=== PATIENT | male | born 1940 | race Caucasian/White ===

== ENCOUNTER 2017-01-15 13:01 | Outpatient (CLI) | payer MEDICARE, OTHER | END 2017-01-15 13:02 | disposition home or self-care (01) | DX: G47.33 Obstructive sleep apnea (adult) (pediatric) (principal) | CPT/HCPCS: 99203; G0463 ==

== ENCOUNTER 2017-02-01 21:07 | Outpatient (CLI) | payer MEDICARE, OTHER | END 2017-02-01 21:08 | disposition home or self-care (01) | DX: G47.33 Obstructive sleep apnea (adult) (pediatric) (principal); G47.61 Periodic limb movement disorder; Z68.41 Body mass index [BMI] 40.0-44.9, adult ==

== ENCOUNTER 2017-02-15 08:34 | Outpatient (CLI) | payer MEDICARE, OTHER | END 2017-02-15 08:35 | disposition home or self-care (01) | DX: G47.33 Obstructive sleep apnea (adult) (pediatric) (principal); G47.61 Periodic limb movement disorder | CPT/HCPCS: 99214; G0463 ==

== ENCOUNTER 2017-04-04 11:17 | Outpatient (CLI) | payer MEDICARE, OTHER | END 2017-04-04 11:18 | disposition home or self-care (01) | LOC: SC 11:17 | PROVIDERS: ATTEND Nurse Practitioner Family | DX: G47.33 Obstructive sleep apnea (adult) (pediatric) (principal) | CPT/HCPCS: 99214; G0463; 99212 ==

== ENCOUNTER 2017-06-18 15:05 | Outpatient (CLI) | payer MEDICARE, OTHER | END 2017-06-18 15:06 | disposition critical access hospital (66) | LOC: EMS 15:05 | PROVIDERS: ATTEND Surgery | DX: R07.9 Chest pain, unspecified (principal) | CPT/HCPCS: A0425; A0427 ==

== ENCOUNTER 2017-06-18 15:34 | Emergency (ER) | payer MEDICARE, OTHER ==
[2017-06-18] MEDS ORDERED: NITROGLYCERIN 2% PASTE TOP STA (16:01)
[2017-06-18 16:24] LABS: BASOPHILS # (AUTO) 0.1 10^3/uL (0.0-0.1); BASOPHILS % (AUTO) 0.8 %; EOSINOPHILS # (AUTO) 0.3 10^3/uL (0.0-0.7); EOSINOPHILS % (AUTO) 3.7 %; HCT - HEMATOCRIT 45.7 % (42.0-52.0); HGB - HEMOGLOBIN 15.7 g/dL (14.0-18.0); LYMPHOCYTES % (AUTO) 29.6 %; MEAN CORPUSCULAR HEMOGLOBIN 32.3 pg (27.0-31.0); MEAN CORPUSCULAR HGB CONC 34.2 g/dL (32.0-36.0); MEAN CORPUSCULAR VOLUME 94.3 fL (80.0-94.0); MEAN PLATELET VOLUME 8.9 fL (7.4-11.4); MONOCYTES # (AUTO) 0.5 10^3/uL (0.0-1.0); MONOCYTES % (AUTO) 7.5 %; NEUTROPHILS # (AUTO) 4.1 10^3/uL (1.5-6.6); NEUTROPHILS % (AUTO) 58.4 %; RED BLOOD COUNT 4.85 10^6/uL (4.70-6.10); RED CELL DISTRIBUTION WIDTH 14.7 % (12.0-15.0); UNCORRECTED WHITE BLOOD COUNT 6.9 x10^3/uL; WHITE BLOOD COUNT 6.9 x10^3/uL (4.8-10.8)
[2017-06-18] MEDS ORDERED: NITROGLYCERIN 2% PASTE TOP ONE (16:26)
[2017-06-18 16:32] LABS: INR 1.6 (0.8-1.2); PT - PROTHROMBIN TIME 18.4 secs (9.9-12.6)
[2017-06-18 16:36] LABS: ALBUMIN/GLOBULIN RATIO 1.4 (1.0-2.2); BILIRUBIN,TOTAL 1.5 mg/dL (0.2-1.0); CALCIUM 9.1 mg/dL (8.5-10.3); CREATININE 0.8 mg/dL (0.6-1.2); POTASSIUM 4.4 mmol/L (3.5-5.0)
--- NOTE | 2017-06-18 16:39 | XRAY Preliminary Report ---
Exam: XR Chest 1 View IMPRESSION: 1. There is cardiomegaly. 2. No acute intrathoracic plain film abnormality. [facility] SITE ID: [id number]
--- NOTE | 2017-06-18 16:42 | XRAY Report ---
EXAM: CHEST RADIOGRAPHY EXAM DATE: 06/18/2017 04:33 PM. CLINICAL HISTORY: CHEST PAIN. COMPARISON: None. TECHNIQUE: 1 view. FINDINGS: Lungs/Pleura: No focal opacities evident. No pleural effusion. No pneumothorax. Mediastinum: There is cardiomegaly. Sternotomy wires are in place. Other: None. IMPRESSION: 1. There is cardiomegaly. 2. No acute intrathoracic plain film abnormality. [facility] Referring Provider Line: [phone] SITE ID: [id number]
[2017-06-18] MEDS ORDERED: ENOXAPARIN 100 MG/ML SYRINGE SUBQ STA (16:48)
--- NOTE | 2017-06-18 16:59 | ED Physician Documentation ---
PD HPI CHEST PAIN - Stated complaint Stated Complaint: CP - Chief complaint Chief Complaint: Cardiac - History obtained from History obtained from: Patient, Family - Additional information Additional information: Patient is a 73-year-old man with history of hypertension, dyslipidemia and valvular heart disease status post 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 The patient presents with a complaint of chest pain that started at rest at 1:30. He describes a ache in the anterior precordium that was moderate to severe intensity that radiated into the right axilla. The pain duration was approximately 5 minutes. The pain went away and then came back again although was less severe. He had associated nausea but no dizziness or dyspnea. Currently the pain is nearly gone. He is never had chest pain like this before. He has not had any provocative stress testing for many many years he believes. Earlier today and over the last week he has been fine without any symptoms. Review of systems: For pertinent positive and negatives in the review of systems please see the history of present illness, otherwise all other systems have been reviewed and are negative. Dragon disclaimer: Parts of this medical record were created using voice recognition technology. Because of the inherent limitations of this system, occasional same sounding word substitutions do occur and persist despite proofreading. Please read the document for context. Review of Systems Ten Systems: 10 systems reviewed and negative Constitutional: denies: Fever, Myalgias Eyes: denies: Photophobia Ears: denies: Ear pain, Drainage/discharge Cardiac: reports: Chest pain / pressure. denies: Palpitations Respiratory: denies: Cough GI: denies: Abdominal Pain, Abdominal Swelling, Nausea, Vomiting : denies: Dysuria, Hesitancy, Unable to Void PD PAST MEDICAL HISTORY - Past Medical History Past Medical History: Yes Cardiovascular: Hypertension, High cholesterol, Atrial fibrillation, Valve disorder Respiratory: Sleep apnea, CPAP use Endocrine/Autoimmune: None GI: GERD : Frequency Psych: None Musculoskeletal: Osteoarthritis Derm: None - Past Surgical History Past Surgical History: Yes General: Colonoscopy Ortho: Other Cardiovascular: Valve replacement HEENT: Tonsil/Adenoidectomy Derm: Skin cancer surgery - Present Medications Home Medications: Ambulatory Orders Medication Instructions Recorded Confirmed Ascorbic Acid [Vitamin C] 1,000 mg PO 07/23/13 05/03/14 Celecoxib [CeleBREX] 200 mg PO DAILY 07/23/13 05/03/14 Cholecalciferol (Vitamin D3) 1,000 unit PO 07/23/13 05/03/14 [Vitamin D] Lisinopril [Zestril] 40 mg PO DAILY 07/23/13 06/18/17 Metoprolol Succinate 50 mg PO BID 07/23/13 06/18/17 Omeprazole [PriLOSEC] 20 mg PO DAILY 07/23/13 06/18/17 Tolterodine [Detrol LA] 4 mg PO DAILY 07/23/13 06/18/17 Warfarin [Coumadin] 5 mg PO DAILY 07/23/13 06/18/17 Mupirocin 1 applic TP BID #15 oint...g. 05/03/14 Sertraline [Zoloft] 06/18/17 - Allergies Allergies/Adverse Reactions: Allergies Allergy/AdvReac Type Severity Reaction Status Date / Time oxycodone [Oxycodone] Allergy Severe Itching Verified 07/23/13 10:22 famotidine [From Pepcid] AdvReac Intermediate unknown Verified 07/23/13 10:22 - Social History Does the pt smoke?: No Smoking Status: Never smoker Does the pt drink ETOH?: No Does the pt have substance abuse?: No - Immunizations Immunizations are current?: Yes - POLST Patient has POLST: No PD ED PE NORMAL - Vitals Vital signs reviewed: Yes - General General: Alert and oriented X 3, Other (Large habitus male no apparent distress) - HEENT HEENT: Atraumatic, PERRL, Pharynx benign, Dentition benign - Neck Neck: Supple, no meningeal sign, No JVD - Cardiac Cardiac: RRR, No murmur, No gallop, No rub - Respiratory Respiratory: No respiratory distress, Clear bilaterally - Abdomen Abdomen: Normal bowel sounds, Soft, Non tender, Non distended - Back Back: No CVA TTP - Derm Derm: Normal color, Warm and dry, No rash, Other - Extremities Extremities: No deformity, No tenderness to palpate - Neuro Neuro: Alert and oriented X 3, 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, No motor deficit, No sensory deficit Results - Vitals Vitals: Vital Signs - 24 hr 06/18/17 06/18/17 06/18/17 15:37 16:21 16:59 Temperature 36.4 C L Heart Rate 72 58 L 73 Respiratory 18 20 18 Rate Blood Pressure 169/70 H 133/69 H 140/68 H O2 Saturation 96 96 06/18/17 17:15 Temperature Heart Rate 59 L Respiratory 20 Rate Blood Pressure 144/74 H O2 Saturation 96 Oxygen O2 Source Room air - Labs Labs: Laboratory Tests 06/18/17 06/18/17 06/18/17 16:15 16:15 16:15 WBC 6.9 RBC 4.85 Hgb 15.7 Hct 45.7 MCV 94.3 H MCH 32.3 H MCHC 34.2 RDW 14.7 Plt Count 182 MPV 8.9 Neut # 4.1 Lymph # 2.0 [place] # 0.5 Eos # 0.3 Baso # 0.1 Absolute Nucleated RBC 0.00 Nucleated RBCs 0.0 PT 18.4 H INR 1.6 H Sodium 137 Potassium 4.4 Chloride 104 Carbon Dioxide 27 Anion Gap 6.0 BUN 22 H Creatinine 0.8 Estimated GFR (MDRD) 94 Glucose 81 Calcium 9.1 Total Bilirubin 1.5 H AST 38 ALT 30 Alkaline Phosphatase 59 Troponin I B-Natriuretic Peptide Total Protein 7.0 Albumin 4.1 Globulin 2.9 Albumin/Globulin Ratio 1.4 Lipase 18 L 06/18/17 06/18/17 16:15 16:15 WBC RBC Hgb Hct MCV MCH MCHC RDW Plt Count MPV Neut # Lymph # [place] # Eos # Baso # Absolute Nucleated RBC Nucleated RBCs PT INR Sodium Potassium Chloride Carbon Dioxide Anion Gap BUN Creatinine Estimated GFR (MDRD) Glucose Calcium Total Bilirubin AST ALT Alkaline Phosphatase Troponin I < 0.04 B-Natriuretic Peptide 130 H Total Protein Albumin Globulin Albumin/Globulin Ratio Lipase PD MEDICAL DECISION MAKING - ED course Complexity details: reviewed old records, reviewed results, re-evaluated patient , considered differential, d/w patient, d/w family, d/w sr risk management consultant ED course: Patient is a 73-year-old man with history of [facility]'s aortic valve repair in 2003, hypertension, and dyslipidemia who presents with severe chest pain at rest this afternoon. He had another brief paroxysms and then the pain is dissipated. At present his chest pain is nearly gone. He has a normal cardiac pulmonary exam on her in emergency department he has a normal cardiopulmonary examination. Chest x-ray shows no acute intrathoracic disease EKG shows normal sinus rhythm with a normal WI, QRS QT interval without ST segment elevation depression or T-wave inversion. Routine labs on this patient are unremarkable including troponin and BNP. Patient's chest x-ray shows cardiomegaly without any evidence of congestive heart failure or any other abnormality. The patient received 4 baby aspirins en route by EMS. Here in emergency department he was given 100 mg of Lovenox, nitroglycerin and nitroglycerin. Given this patient's past medical history and symptoms here today think he has moderate risk patient for ACS. His symptoms are quiescent at present. 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 I disposition transfer to [facility] Clinical impression: 1. Precordial pain-possible unstable angina 2. History of hypertension-stable 3. History of mechanical [facility] Sury[facility]'s aortic valve replacement 2003-stable 4. Slightly subtherapeutic INR at 1.6-patient given 100 mg of Lovenox Departure - Departure Disposition: 02 Transfer Acute Care Hosp
[2017-06-18] MEDS ORDERED: ENOXAPARIN 100 MG/ML SYRINGE SUBQ ONE (17:06)
[2017-06-18 18:25] VITALS: BP 144/62
== END 2017-06-18 19:14 | disposition short-term general hospital (02) ==
LOC: EDUNIT# → ED 15:34
DX: R07.2 Precordial pain (principal); I10 Essential (primary) hypertension; Z95.2 Presence of prosthetic heart valve; Z79.01 Long term (current) use of anticoagulants
CPT/HCPCS: 36415; 71010; 80053; 83690; 83880; 84484; 85025; 85610; 93005; 96372; 99284; 99285; A9270; J1650

== ENCOUNTER 2017-08-07 08:37 | Outpatient (CLI) | payer MEDICARE, OTHER | END 2017-08-07 08:38 | disposition home or self-care (01) | LOC: SC 08:37 | PROVIDERS: ATTEND Nurse Practitioner Family | DX: G47.33 Obstructive sleep apnea (adult) (pediatric) (principal) | CPT/HCPCS: 99214; G0463; 99212 ==

== ENCOUNTER 2017-09-11 13:02 | Outpatient (CLI) | payer MEDICARE, OTHER | END 2017-09-11 13:03 | disposition home or self-care (01) | LOC: SC 13:02 | PROVIDERS: ATTEND Nurse Practitioner Family | DX: G47.33 Obstructive sleep apnea (adult) (pediatric) (principal) | CPT/HCPCS: 99214; G0463; 99212 ==

== ENCOUNTER 2017-10-18 11:07 | Outpatient (CLI) | payer MEDICARE, OTHER | END 2017-10-18 11:08 | disposition home or self-care (01) | LOC: SC 11:07 | PROVIDERS: ATTEND Nurse Practitioner Family | DX: G47.33 Obstructive sleep apnea (adult) (pediatric) (principal) | CPT/HCPCS: 99214; G0463; 99212 ==

== ENCOUNTER 2017-11-13 08:00 | Outpatient (CLI) | payer MEDICARE, OTHER ==
[2017-11-13 13:39] LABS: ALBUMIN/GLOBULIN RATIO 1.6 (1.0-2.2); ALKALINE PHOSPHATASE 49 IU/L (42-121); ALT ALANINE AMINOTRANSFERASE 24 IU/L (10-60); AST ASPARTATE AMINOTRANSFERASE 33 IU/L (10-42); BILIRUBIN,TOTAL 1.4 mg/dL (0.2-1.0); BUN - BLOOD UREA NITROGEN 21 mg/dL (6-20); CALCIUM 8.8 mg/dL (8.5-10.3); CARBON DIOXIDE - CO2 26 mmol/L (21-32); CHLORIDE 108 mmol/L (101-111); CHOL/HDL RATIO 3.6 (<5.0); CHOLESTEROL 136 mg/dL; CREATININE 0.9 mg/dL (0.6-1.2); GFR - MDRD 82 (>89); GLUCOSE 95 mg/dL (70-100); HDL CHOLESTEROL 38 mg/dL; LDL CHOLESTEROL,CALCULATED 73 mg/dL; LDL/HDL RATIO 1.9 (<3.6); SODIUM 137 mmol/L (135-145); TOTAL PROTEIN 6.5 g/dL (6.7-8.2); VLDL CHOLESTEROL 25 mg/dL
[2017-11-13 13:49] LABS: HB2 TOTAL 16.9 g/dL; HEMOGLOBIN A1C 0.51 g/dL; HEMOGLOBIN A1C % 4.9 % (4.6-6.2)
== END 2017-11-13 08:01 | disposition home or self-care (01) ==
LOC: LAB.WCP 08:00
PROVIDERS: ATTEND Family Medicine
DX: R73.9 Hyperglycemia, unspecified (principal); E78.5 Hyperlipidemia, unspecified; I10 Essential (primary) hypertension
CPT/HCPCS: 36415; 80053; 80061; 83036; 83721

== ENCOUNTER 2017-12-26 10:57 | Outpatient (CLI) | payer MEDICARE, OTHER | END 2017-12-26 10:58 | disposition home or self-care (01) | LOC: SC 10:57 | PROVIDERS: ATTEND Nurse Practitioner Family | DX: G47.33 Obstructive sleep apnea (adult) (pediatric) (principal) | CPT/HCPCS: 99214; G0463; 99212 ==

== ENCOUNTER 2018-02-12 13:15 | Outpatient (CLI) | payer MEDICARE, OTHER ==
[2018-02-12 19:19] LABS: BASOPHILS # (AUTO) 0.1 10^3/uL (0.0-0.1); BASOPHILS % (AUTO) 1.2 %; EOSINOPHILS # (AUTO) 0.3 10^3/uL (0.0-0.7); HGB - HEMOGLOBIN 14.9 g/dL (14.0-18.0); LYMPHOCYTES # (AUTO) 2.2 10^3/uL (1.5-3.5); LYMPHOCYTES % (AUTO) 26.5 %; MEAN CORPUSCULAR HEMOGLOBIN 31.4 pg (27.0-31.0); MEAN CORPUSCULAR HGB CONC 33.5 g/dL (32.0-36.0); MEAN CORPUSCULAR VOLUME 93.6 fL (80.0-94.0); MEAN PLATELET VOLUME 9.3 fL (7.4-11.4); MONOCYTES # (AUTO) 0.5 10^3/uL (0.0-1.0); NEUTROPHILS # (AUTO) 5.3 10^3/uL (1.5-6.6); NEUTROPHILS % (AUTO) 63.3 %; PLT - PLATELET COUNT 213 10^3/uL (130-450); RED BLOOD COUNT 4.76 10^6/uL (4.70-6.10); RED CELL DISTRIBUTION WIDTH 14.5 % (12.0-15.0); WHITE BLOOD COUNT 8.3 x10^3/uL (4.8-10.8)
[2018-02-12 19:29] LABS: CALCIUM 9.4 mg/dL (8.5-10.3); CREATININE 0.8 mg/dL (0.6-1.2)
[2018-02-12 19:33] LABS: HB2 TOTAL 16.7 g/dL; HEMOGLOBIN A1C 0.54 g/dL; HEMOGLOBIN A1C % 5.1 % (4.6-6.2)
== END 2018-02-12 13:16 | disposition home or self-care (01) ==
LOC: LAB.WCP 13:15
PROVIDERS: ATTEND Family Medicine
DX: R73.9 Hyperglycemia, unspecified (principal); I10 Essential (primary) hypertension; Z79.899 Other long term (current) drug therapy
CPT/HCPCS: 36415; 80048; 83036; 85025

== ENCOUNTER 2018-02-25 09:59 | Outpatient (CLI) | payer MEDICARE, OTHER | END 2018-02-25 10:00 | disposition home or self-care (01) | LOC: SC 09:59 | PROVIDERS: ATTEND Nurse Practitioner Family | DX: G47.33 Obstructive sleep apnea (adult) (pediatric) (principal); I10 Essential (primary) hypertension | CPT/HCPCS: 99214 ==

== ENCOUNTER 2018-04-01 13:30 | Outpatient (CLI) | payer MEDICARE, OTHER | END 2018-04-01 13:31 | disposition home or self-care (01) | LOC: SC 13:30 | PROVIDERS: ATTEND Nurse Practitioner Family | DX: G47.33 Obstructive sleep apnea (adult) (pediatric) (principal) | CPT/HCPCS: 99214; G0463; 99212 ==

== ENCOUNTER 2018-06-13 10:03 | Outpatient (CLI) | payer MEDICARE, OTHER | END 2018-06-13 10:04 | disposition home or self-care (01) | LOC: SC 10:03 | PROVIDERS: ATTEND Nurse Practitioner Family | DX: G47.33 Obstructive sleep apnea (adult) (pediatric) (principal) | CPT/HCPCS: 99214; G0463; 99212 ==

== ENCOUNTER 2018-07-18 13:02 | Outpatient (CLI) | payer MEDICARE, OTHER | END 2018-07-18 13:03 | disposition home or self-care (01) | LOC: SC 13:02 | PROVIDERS: ATTEND Nurse Practitioner Family | DX: G47.33 Obstructive sleep apnea (adult) (pediatric) (principal) | CPT/HCPCS: 99214; G0463; 99212 ==

== ENCOUNTER 2018-08-22 10:07 | Outpatient (CLI) | payer MEDICARE, OTHER | END 2018-08-22 10:08 | disposition home or self-care (01) | LOC: SC 10:07 | PROVIDERS: ATTEND Nurse Practitioner Family | DX: G47.33 Obstructive sleep apnea (adult) (pediatric) (principal) | CPT/HCPCS: 99214; G0463; 99212 ==

== ENCOUNTER → 2018-09-04 | Outpatient (CLI) | payer MEDICARE, OTHER ==
[2018-09-04 13:47] LABS: ALBUMIN 4.2 g/dL (3.2-5.5); ALBUMIN/GLOBULIN RATIO 1.6 (1.0-2.2); ALKALINE PHOSPHATASE 62 IU/L (42-121); ALT ALANINE AMINOTRANSFERASE 26 IU/L (10-60); AST ASPARTATE AMINOTRANSFERASE 39 IU/L (10-42); BILIRUBIN,TOTAL 1.5 mg/dL (0.2-1.0); BUN - BLOOD UREA NITROGEN 24 mg/dL (6-20); CARBON DIOXIDE - CO2 28 mmol/L (21-32); CHLORIDE 102 mmol/L (101-111); CHOL/HDL RATIO 3.4 (<5.0); CHOLESTEROL 144 mg/dL; CREATININE 0.8 mg/dL (0.6-1.2); GFR - MDRD 94 (>89); GLUCOSE 97 mg/dL (70-100); HDL CHOLESTEROL 42 mg/dL; LDL CHOLESTEROL,CALCULATED 78 mg/dL; LDL/HDL RATIO 1.9 (<3.6); SODIUM 138 mmol/L (135-145); TOTAL PROTEIN 6.8 g/dL (6.7-8.2); VLDL CHOLESTEROL 24 mg/dL
[2018-09-04 14:21] LABS: HB2 TOTAL 16.6 g/dL; HEMOGLOBIN A1C 0.5 g/dL; HEMOGLOBIN A1C % 4.9 % (4.6-6.2)
== END ==
LOC: LAB.WCP 08:38
PROVIDERS: ATTEND Family Medicine
DX: R73.9 Hyperglycemia, unspecified (principal); I10 Essential (primary) hypertension; E78.5 Hyperlipidemia, unspecified; R07.9 Chest pain, unspecified
CPT/HCPCS: 36415; 80053; 80061; 83036; 83721

== ENCOUNTER 2018-09-26 08:36 | Outpatient (CLI) | payer MEDICARE, OTHER | END 2018-09-26 08:37 | disposition home or self-care (01) | LOC: SC 08:36 | PROVIDERS: ATTEND Nurse Practitioner Family | DX: G47.33 Obstructive sleep apnea (adult) (pediatric) (principal) | CPT/HCPCS: 99214; G0463; 99212 ==

== ENCOUNTER 2018-10-01 06:12 | Outpatient (CLI) | payer MEDICARE, OTHER ==
--- NOTE | 2018-10-01 16:04 | Ultrasound Report ---
Reason: NICOTINE ADDICTION IN REMISSION Procedure Date: 10/01/2018 Accession Number: [id number] / [id number] Procedure: US - Aorta Screening CPT Code: FULL RESULT: EXAM: AORTIC DOPPLER ULTRASOUND. EXAM DATE: 10/01/2018 09:27 AM. CLINICAL HISTORY: Nicotine addiction in remission. COMPARISON: None. TECHNIQUE: Real-time sonographic imaging of retroperitoneal vascular structures, including color-flow, Doppler flow and spectral analysis was performed by the employee benefits specialist. Multiple utility sales representative static images were saved for review. FINDINGS: Aorta: The abdominal aorta was adequately visualized. No evidence for abdominal aortic aneurysm. Technically limited study due to patient body habitus. Aorta: Proximal: Sagittal AP: 2.4 cm. Mid: Transverse: 1.7 x 1.6 cm. Distal: Transverse: 1.7 x 1.4 cm. Plaque visualized: Yes. Caliber WNL: Yes. Plaque Visualized? Yes. Iliacs: Right Iliac: AP Dimension: 0.97 x 1.1 cm. Left Iliac: AP Dimension: 1.1 x 0.97 cm. Iliac Vessels: The visualized proximal common iliac arteries are normal in caliber. Other: None. IMPRESSION: No abdominal aortic aneurysm. [facility]
== END 2018-10-01 06:13 | disposition home or self-care (01) ==
LOC: DI 06:12
PROVIDERS: ATTEND Family Medicine
DX: F17.201 Nicotine dependence, unspecified, in remission (principal)
CPT/HCPCS: 76706

== ENCOUNTER 2018-12-25 08:00 | Outpatient (CLI) | payer MEDICARE, OTHER | END 2018-12-25 23:59 | disposition home or self-care (01) | LOC: LAB.WCP 08:00 | PROVIDERS: ATTEND Family Medicine | DX: Z79.01 Long term (current) use of anticoagulants (principal); I08.0 Rheumatic disorders of both mitral and aortic valves ==

== ENCOUNTER 2019-01-08 08:00 | Outpatient (CLI) | payer MEDICARE, OTHER | END 2019-01-08 23:59 | disposition home or self-care (01) | LOC: LAB.WCP 08:00 | PROVIDERS: ATTEND Family Medicine | DX: I08.0 Rheumatic disorders of both mitral and aortic valves (principal); Z79.01 Long term (current) use of anticoagulants ==

== ENCOUNTER 2019-01-08 08:00 | Outpatient (CLI) | payer MEDICARE, OTHER ==
[2019-01-08 19:54] LABS: BASOPHILS # (AUTO) 0.1 10^3/uL (0.0-0.1); BASOPHILS % (AUTO) 0.9 %; EOSINOPHILS # (AUTO) 0.2 10^3/uL (0.0-0.7); EOSINOPHILS % (AUTO) 2.8 %; HGB - HEMOGLOBIN 14.7 g/dL (14.0-18.0); LYMPHOCYTES # (AUTO) 1.6 10^3/uL (1.5-3.5); LYMPHOCYTES % (AUTO) 25.5 %; MEAN CORPUSCULAR HEMOGLOBIN 31.4 pg (27.0-31.0); MEAN CORPUSCULAR VOLUME 95.1 fL (80.0-94.0); MEAN PLATELET VOLUME 9.4 fL (7.4-11.4); MONOCYTES # (AUTO) 0.5 10^3/uL (0.0-1.0); MONOCYTES % (AUTO) 8.7 %; NEUTROPHILS # (AUTO) 3.8 10^3/uL (1.5-6.6); NEUTROPHILS % (AUTO) 62.1 %; PLT - PLATELET COUNT 185 10^3/uL (130-450); RED BLOOD COUNT 4.69 10^6/uL (4.70-6.10); RED CELL DISTRIBUTION WIDTH 15.5 % (12.0-15.0); WHITE BLOOD COUNT 6.2 x10^3/uL (4.8-10.8)
[2019-01-08 20:12] LABS: ALBUMIN 3.8 g/dL (3.2-5.5); ALBUMIN/GLOBULIN RATIO 1.4 (1.0-2.2); BILIRUBIN,TOTAL 1.3 mg/dL (0.2-1.0); CREATININE 0.8 mg/dL (0.6-1.2); TOTAL PROTEIN 6.5 g/dL (6.7-8.2)
== END 2019-01-08 23:59 | disposition home or self-care (01) ==
LOC: LAB.WCP 08:00
PROVIDERS: ATTEND Family Medicine
DX: E80.6 Other disorders of bilirubin metabolism (principal); I10 Essential (primary) hypertension; I08.0 Rheumatic disorders of both mitral and aortic valves; Z79.01 Long term (current) use of anticoagulants
CPT/HCPCS: 36415; 80053; 85025

== ENCOUNTER 2019-01-22 08:00 | Outpatient (CLI) | payer MEDICARE, OTHER | END 2019-01-22 23:59 | disposition home or self-care (01) | LOC: LAB.WCP 08:00 | PROVIDERS: ATTEND Family Medicine | DX: I08.0 Rheumatic disorders of both mitral and aortic valves (principal); Z79.01 Long term (current) use of anticoagulants ==

== ENCOUNTER 2019-03-03 19:22 | Outpatient (CLI) | payer MEDICARE, OTHER | END 2019-03-03 19:23 | disposition home or self-care (01) | LOC: SC 19:22 | PROVIDERS: ATTEND Internal Medicine Pulmonary Disease | DX: G47.33 Obstructive sleep apnea (adult) (pediatric) (principal); G47.61 Periodic limb movement disorder | CPT/HCPCS: 95811 ==

== ENCOUNTER 2019-03-20 08:00 | Outpatient (CLI) | payer MEDICARE, OTHER ==
[2019-03-20 18:46] LABS: BASOPHILS # (AUTO) 0.1 10^3/uL (0.0-0.1); BASOPHILS % (AUTO) 0.9 %; EOSINOPHILS # (AUTO) 0.2 10^3/uL (0.0-0.7); EOSINOPHILS % (AUTO) 2.8 %; HGB - HEMOGLOBIN 15.4 g/dL (14.0-18.0); LYMPHOCYTES # (AUTO) 2.1 10^3/uL (1.5-3.5); MEAN CORPUSCULAR HEMOGLOBIN 31.7 pg (27.0-31.0); MEAN CORPUSCULAR VOLUME 93.2 fL (80.0-94.0); MEAN PLATELET VOLUME 9.1 fL (7.4-11.4); MONOCYTES # (AUTO) 0.6 10^3/uL (0.0-1.0); MONOCYTES % (AUTO) 8.8 %; NEUTROPHILS % (AUTO) 57.5 %; PLT - PLATELET COUNT 220 10^3/uL (130-450); RED BLOOD COUNT 4.85 10^6/uL (4.70-6.10); RED CELL DISTRIBUTION WIDTH 14.5 % (12.0-15.0)
[2019-03-20 18:48] LABS: ALBUMIN 4.1 g/dL (3.2-5.5); ALBUMIN/GLOBULIN RATIO 1.3 (1.0-2.2); BILIRUBIN,TOTAL 1.4 mg/dL (0.2-1.0); CALCIUM 9.4 mg/dL (8.5-10.3); CREATININE 0.7 mg/dL (0.6-1.2); TOTAL PROTEIN 7.2 g/dL (6.7-8.2)
[2019-03-20 19:01] LABS: THYROID STIMULATING HORMONE 1.39 uIU/mL (0.34-5.60)
[2019-03-20 19:18] LABS: HB2 TOTAL 16.6 g/dL; HEMOGLOBIN A1C 0.62 g/dL; HEMOGLOBIN A1C % 5.6 % (4.6-6.2)
== END 2019-03-20 23:59 | disposition home or self-care (01) ==
LOC: LAB.WCP 08:00
PROVIDERS: ATTEND Family Medicine
DX: I10 Essential (primary) hypertension (principal); Z79.899 Other long term (current) drug therapy; R27.9 Unspecified lack of coordination; K21.9 Gastro-esophageal reflux disease without esophagitis; M17.9 Osteoarthritis of knee, unspecified
CPT/HCPCS: 36415; 80053; 82306; 82607; 82746; 83036; 84443; 85025

== ENCOUNTER 2019-04-30 09:14 | Outpatient (CLI) | payer MEDICARE, OTHER | END 2019-04-30 09:15 | disposition home or self-care (01) | LOC: SC 09:14 | PROVIDERS: ATTEND Nurse Practitioner Family | DX: G47.33 Obstructive sleep apnea (adult) (pediatric) (principal); G47.61 Periodic limb movement disorder | CPT/HCPCS: 99215; G0463; 99212 ==

== ENCOUNTER 2019-05-24 11:13 | Outpatient (CLI) | payer MEDICARE, OTHER | END 2019-05-24 11:14 | disposition critical access hospital (66) | LOC: EMS 11:13 | PROVIDERS: ATTEND Surgery | DX: S06.9X1A Unspecified intracranial injury with loss of consciousness of 30 minutes or less, initial encounter (principal); S01.01XA Laceration without foreign body of scalp, initial encounter; W18.09XA Striking against other object with subsequent fall, initial encounter; Y92.008 Other place in unspecified non-institutional (private) residence as the place of occurrence of the external cause; Z79.01 Long term (current) use of anticoagulants | CPT/HCPCS: A0425; A0427 ==

== ENCOUNTER 2019-05-24 11:42 | Emergency (ER) | payer MEDICARE, OTHER ==
[2019-05-24 11:58] LABS: BASOPHILS # (AUTO) 0.1 10^3/uL (0.0-0.1); BASOPHILS % (AUTO) 0.9 %; EOSINOPHILS # (AUTO) 0.3 10^3/uL (0.0-0.7); EOSINOPHILS % (AUTO) 4.2 %; HGB - HEMOGLOBIN 14.6 g/dL (14.0-18.0); LYMPHOCYTES # (AUTO) 1.6 10^3/uL (1.5-3.5); LYMPHOCYTES % (AUTO) 25.7 %; MEAN CORPUSCULAR HEMOGLOBIN 31.7 pg (27.0-31.0); MEAN CORPUSCULAR HGB CONC 33.7 g/dL (32.0-36.0); MEAN CORPUSCULAR VOLUME 94.1 fL (80.0-94.0); MEAN PLATELET VOLUME 10.8 fL (7.4-11.4); MONOCYTES # (AUTO) 0.6 10^3/uL (0.0-1.0); MONOCYTES % (AUTO) 8.6 %; NEUTROPHILS # (AUTO) 3.8 10^3/uL (1.5-6.6); NEUTROPHILS % (AUTO) 59.7 %; PLT - PLATELET COUNT 189 10^3/uL (130-450); RED CELL DISTRIBUTION WIDTH 14.5 % (12.0-15.0); WHITE BLOOD COUNT 6.4 x10^3/uL (4.8-10.8)
--- NOTE | 2019-05-24 11:59 | ED Physician Documentation ---
PD HPI HEAD INJURY - Stated complaint Stated Complaint: HEAD INJURY/ +LOC - Chief complaint Chief Complaint: Neuro - History obtained from History obtained from: Patient, EMS - History of Present Illness Mechanism of head injury: Fell Where head injury occurred: Home Timing - onset: Today Location of injury: Back Quality of pain: Pain Associated symptoms: LOC, AMS, Amnesia Symptoms improve with: Rest Symptoms worsen with: Palpation Contributing factors: Anticoagulated (on coumadin) Similar symptoms before: Has not had sx before Recently seen: Not recently seen - Additional information Additional information: 78-year-old male on Coumadin was walking out to his shop today when he struck his head on the garage door and fell backwards. He injured the back of his head he did have some loss of consciousness at the scene. He does not recall the injury. He is on Coumadin. Review of Systems Constitutional: denies: Fever Eyes: denies: Decreased vision Ears: denies: Ear pain Nose: denies: Rhinorrhea / runny nose, Congestion Throat: denies: Sore throat Cardiac: denies: Chest pain / pressure, Palpitations Respiratory: denies: Dyspnea, Cough GI: denies: Abdominal Pain, Nausea, Vomiting : denies: Dysuria, Frequency Skin: denies: Rash Musculoskeletal: denies: Neck pain Neurologic: reports: Confused, Headache, Head injury, LOC. denies: Generalized weakness, Focal weakness, Numbness, Difficulty speaking PD PAST MEDICAL HISTORY - Past Medical History Cardiovascular: Hypertension, High cholesterol, Atrial fibrillation, Valve disorder Respiratory: Sleep apnea, CPAP use Endocrine/Autoimmune: None GI: GERD : Frequency Psych: None Musculoskeletal: Osteoarthritis Derm: None - Past Surgical History Past Surgical History: Yes General: Colonoscopy Ortho: Other Cardiovascular: Valve replacement HEENT: Tonsil/Adenoidectomy Derm: Skin cancer surgery - Present Medications Home Medications: Ambulatory Orders Medication Instructions Recorded Confirmed Ascorbic Acid [Vitamin C] 1,000 mg PO 07/23/13 05/03/14 Celecoxib [CeleBREX] 200 mg PO DAILY 07/23/13 05/03/14 Cholecalciferol (Vitamin D3) 1,000 unit PO 07/23/13 05/03/14 [Vitamin D] Lisinopril [Zestril] 40 mg PO DAILY 07/23/13 06/18/17 Omeprazole [PriLOSEC] 20 mg PO DAILY 07/23/13 06/18/17 Tolterodine [Detrol LA] 4 mg PO DAILY 07/23/13 06/18/17 Warfarin [Coumadin] 5 mg PO DAILY 07/23/13 06/18/17 Sertraline [Zoloft] 06/18/17 Atorvastatin [Lipitor] 20 05/24/19 Cetirizine [ZyrTEC] 10 mg PO ONCE 05/24/19 05/24/19 Metoprolol Succinate [Toprol Xl] 25 mg PO ONCE 05/24/19 05/24/19 - Allergies Allergies/Adverse Reactions: Allergies Allergy/AdvReac Type Severity Reaction Status Date / Time oxycodone [Oxycodone] Allergy Severe Itching Verified 07/23/13 10:22 famotidine [From Pepcid] AdvReac Intermediate unknown Verified 07/23/13 10:22 - Social History Does the pt smoke?: No Smoking Status: Never smoker Does the pt drink ETOH?: No Does the pt have substance abuse?: No - Immunizations Immunizations are current?: Yes - POLST Patient has POLST: No PD ED PE NORMAL - Vitals Vital signs reviewed: Yes (hypertensive ) - General General: No acute distress, Well developed/nourished - HEENT HEENT: PERRL, EOMI - Neck Neck: Supple, no meningeal sign, No bony TTP - Cardiac Cardiac: RRR, No murmur - Respiratory Respiratory: No respiratory distress, Clear bilaterally - Abdomen Abdomen: Normal bowel sounds, Soft, Non tender, Non distended, No organomegaly - Back Back: No CVA TTP, No spinal TTP - Derm Derm: Normal color, Warm and dry, No rash - Extremities Extremities: No deformity, No edema - Neuro 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, No motor deficit, No sensory deficit, Normal speech Eye Opening: Spontaneous Motor: Obeys Commands Verbal: Confused GCS Score: 14 - Psych Psych: Normal mood, Normal affect Results - Vitals Vitals: Vital Signs - 24 hr 05/24/19 05/24/19 05/24/19 11:45 12:34 14:17 Temperature 36 C L Heart Rate 64 66 63 Respiratory 18 20 13 Rate Blood Pressure 169/85 H 163/79 H 141/71 H O2 Saturation 100 99 98 05/24/19 15:19 Temperature Heart Rate 63 Respiratory 20 Rate Blood Pressure 130/78 O2 Saturation 96 Oxygen O2 Source Room air - Labs Labs: Laboratory Tests 05/24/19 05/24/19 05/24/19 11:49 11:49 11:49 WBC 6.4 RBC 4.60 L Hgb 14.6 Hct 43.3 MCV 94.1 H MCH 31.7 H MCHC 33.7 RDW 14.5 Plt Count 189 MPV 10.8 Neut # (Auto) 3.8 Lymph # (Auto) 1.6 [place] # (Auto) 0.6 Eos # (Auto) 0.3 Baso # (Auto) 0.1 Absolute Nucleated RBC 0.00 Nucleated RBC % 0.0 PT 32.9 H INR 3.0 H Sodium 142 Potassium 4.3 Chloride 105 Carbon Dioxide 26 Anion Gap 11.0 BUN 17 Creatinine 0.7 Estimated GFR (MDRD) 109 Glucose 95 Calcium 9.2 Total Bilirubin 1.2 H AST 29 ALT 23 Alkaline Phosphatase 65 Total Protein 6.5 L Albumin 3.7 Globulin 2.8 Albumin/Globulin Ratio 1.3 Lipase 24 Urine Color Urine Clarity Urine pH Ur Specific [place] Urine Protein Urine Glucose (UA) Urine Ketones Urine Occult Blood Urine Nitrite Urine Bilirubin Urine Urobilinogen Ur Leukocyte Esterase Ur Microscopic Review Urine Culture Comments 05/24/19 12:45 WBC RBC Hgb Hct MCV MCH MCHC RDW Plt Count MPV Neut # (Auto) Lymph # (Auto) [place] # (Auto) Eos # (Auto) Baso # (Auto) Absolute Nucleated RBC Nucleated RBC % PT INR Sodium Potassium Chloride Carbon Dioxide Anion Gap BUN Creatinine Estimated GFR (MDRD) Glucose Calcium Total Bilirubin AST ALT Alkaline Phosphatase Total Protein Albumin Globulin Albumin/Globulin Ratio Lipase Urine Color YELLOW Urine Clarity CLEAR Urine pH 7.0 Ur Specific [place] <=1.005 Urine Protein NEGATIVE Urine Glucose (UA) NEGATIVE Urine Ketones NEGATIVE Urine Occult Blood NEGATIVE Urine Nitrite NEGATIVE Urine Bilirubin NEGATIVE Urine Urobilinogen 0.2 (NORMAL) Ur Leukocyte Esterase NEGATIVE Ur Microscopic Review NOT INDICATED Urine Culture Comments NOT INDICATED - Rads (name of study) cervical spine ct Radiology: Prelim report reviewed (Impression 1. Multi-level osteoarthritis changes present, worse at C5/C6. No acute fracture noted. Possible esophageal diverticulum noted posterior to the trachea in the midesophagus.), EMP read indepedently, See rad report head CT Radiology: Prelim report reviewed (Impression: Mild senescent changes without CT evidence of acute intracranial disease.), EMP read indepedently, See rad report ribs w/PA chest Radiology: Prelim report reviewed (Impression: 1. No acute displaced fracture identified. 2 Stable mild cardia megaly. 3 Mild diffuse interstitial prominence appears similar to prior exam. This may be due to interstitial edema or chronic lung changes), EMP read indepedently, See rad report wrist Radiology: Prelim report reviewed (Impression: 1. No fracture or other acute osseous abnormality of the wrist.2 Bones are diffusely demineralized. Severe degenerative joint changes at the first metacarpal joint. 2 The trapezium is not visualized and may be surgically absent. 3 There is mild narrowing of the radiocarpal joint space.), EMP read indepedently, See rad report PD MEDICAL DECISION MAKING - ED course Complexity details: reviewed results, re-evaluated patient, considered differential, d/w patient, d/w family ED course: 78 y/o Male with a closed head injury on Coumadin has no evidence of hemorrhage on CT scan. He does have repetitive amnesia And this begins to clear over a period of several hours. He has chest wall contusion without fracture and wrist sprain. Departure - Departure Disposition: 01 Home, Self Care Clinical Impression: Concussion with brief LOC Chest wall contusion Qualifiers: Encounter type: initial encounter Laterality: right Qualified Code(s): S20.211A - Contusion of right front wall of thorax, initial encounter Condition: Stable Instructions: ED Contusion Vs Minor Fx Rib, ED Concussion W Sleep Monitor, ED Sprain Wrist Follow-Up: Otoniel Duarte DO [Primary Care Provider] -
[2019-05-24 12:09] LABS: PT - PROTHROMBIN TIME 32.9 secs (9.9-12.6)
[2019-05-24 12:11] LABS: ALBUMIN 3.7 g/dL (3.2-5.5); ALBUMIN/GLOBULIN RATIO 1.3 (1.0-2.2); BILIRUBIN,TOTAL 1.2 mg/dL (0.2-1.0); CALCIUM 9.2 mg/dL (8.5-10.3); CREATININE 0.7 mg/dL (0.6-1.2); TOTAL PROTEIN 6.5 g/dL (6.7-8.2)
[2019-05-24 13:00] LABS: BILIRUBIN,URINE NEGATIVE (NEGATIVE); CLARITY,URINE CLEAR (CLEAR); GLUCOSE, URINE (UA) NEGATIVE (NEGATIVE); KETONES,URINE (UA) NEGATIVE (NEGATIVE); LEUKOCYTE ESTERASE, URINE NEGATIVE (NEGATIVE); NITRITE,URINE NEGATIVE (NEGATIVE); OCCULT BLOOD,URINE NEGATIVE (NEGATIVE); PROTEIN,URINE NEGATIVE (NEGATIVE); UROBILINOGEN,URINE 0.2 (NORMAL) E.U./dL (NORMAL)
--- NOTE | 2019-05-24 13:09 | CT Report ---
Reason: head injury anti-coagulant Procedure Date: 05/24/2019 Accession Number: [id number] / [id number] Procedure: CT - HEAD WO CPT Code: FULL RESULT: EXAM: CT HEAD EXAM DATE: 05/24/2019 12:30 PM. CLINICAL HISTORY: Headache status post fall with confusion. COMPARISON: None. TECHNIQUE: Multiaxial CT images were obtained from the foramen magnum to the vertex. Reformats: Sagittal and coronal. IV contrast: None. In accordance with CT protocol optimization, one or more of the following dose reduction techniques were utilized for this exam: automated exposure control, adjustment of mA and/or KV based on patient size, or use of iterative reconstructive technique. FINDINGS: Parenchyma: No intraparenchymal hemorrhage. No evidence of mass, midline shift, or CT findings of infarction. Sifuentes-white differentiation is distinct. Mild periventricular hypoattenuation seen. Extraaxial Spaces: Mild atrophy present. No subdural or epidural collections identified. Ventricles: Normal in size and position. Sinuses and Orbits: Imaged paranasal sinuses, orbits, and mastoids show no significant abnormality. Bones: No evidence of fracture or calvarial defect. Other: None. IMPRESSION: Mild senescent changes without CT evidence of acute intracranial disease. [facility]
--- NOTE | 2019-05-24 13:15 | CT Report ---
Reason: head injury confusion Procedure Date: 05/24/2019 Accession Number: [id number] / [id number] Procedure: CT - CERVICAL SPINE WO CPT Code: FULL RESULT: EXAM: CT CERVICAL SPINE WITHOUT CONTRAST DATE: 05/24/2019 12:30 PM. HISTORY: Neck pain post fall with head injury. Confusion/altered mental status. COMPARISONS: None. TECHNIQUE: Thin-section axial images were acquired of the cervical spine without contrast. Post-processing: Coronal and sagittal reformats. Other: None. In accordance with CT protocol optimization, one or more of the following dose reduction techniques were utilized for this exam: automated exposure control, adjustment of mA and/or KV based on patient size, or use of iterative reconstructive technique. FINDINGS: Alignment: No scoliosis or spondylolisthesis. Bones: No fracture or bone lesion. Interspace Levels/Facets: Moderate multilevel osteoarthritic changes present, worse at C5/C6, with prominent neural foraminal narrowing. Musculature: Normal. No fatty atrophy. Other: There is possible esophageal diverticulum noted posterior to the trachea best noted on image 103 of series 3. The lung apices are clear. IMPRESSION: 1. Moderate multilevel osteoarthritic changes present, worst at C5/C6. No acute fracture noted. 2. Possible esophageal diverticulum noted posterior to the trachea in the mid esophagus. [facility]
[2019-05-24] MEDS ORDERED: ACETAMINOPHEN 500 MG TABLET PO STA (13:59)
--- NOTE | 2019-05-24 14:15 | XRAY Report ---
Reason: fall right chest contusion Procedure Date: 05/24/2019 Accession Number: [id number] / [id number] Procedure: XR - Ribs w/PA Chest RT CPT Code: FULL RESULT: EXAM: RIGHT RIB RADIOGRAPHY EXAM DATE: 05/24/2019 01:56 PM. CLINICAL HISTORY: Fall. Right chest contusion. COMPARISON: CHEST 1 VIEW 06/18/2017 3:53 PM. TECHNIQUE: 1 view of the chest and 2 views of the ribs. FINDINGS: Bones: No displaced fracture or bone lesion. The patient is post median sternotomy. 2 of the sternal cerclage wires are fractured, which was present on the prior exam. Lungs: No focal consolidation. Mild diffuse interstitial prominence similar to the prior exam. No pneumothorax. No pleural effusions. Mediastinum: There is stable mild enlargement of the cardiac silhouette. There is mild atherosclerotic ossification of the aortic arch. Other: None. IMPRESSION: 1. No acute displaced fracture identified. 2. Stable mild cardiomegaly. 3. Mild diffuse interstitial prominence appears similar to the prior exam. This may be due to mild interstitial edema or chronic lung changes. [facility]
--- NOTE | 2019-05-24 14:18 | XRAY Report ---
Reason: fall pain in wrist Procedure Date: 05/24/2019 Accession Number: [id number] / [id number] Procedure: XR - Wrist 4 View RT CPT Code: FULL RESULT: EXAM: RIGHT WRIST RADIOGRAPHY EXAM DATE: 05/24/2019 01:55 PM. CLINICAL HISTORY: Ground-level fall landing on right side, injuring right wrist. Pain in wrist. COMPARISON: None. TECHNIQUE: 4 views. FINDINGS: Bones: Diffusely demineralized. No fractures or bone lesions. The trapezium is not visualized and may be surgically absent. Joints: No subluxation or dislocation. There is severe degenerative osteoarthritis at the first carpometacarpal joint. There are subchondral cystic changes in the distal pole of the scaphoid. There is mild joint space narrowing of the radiocarpal joint space. Soft Tissues: No focal soft-tissue swelling appreciated. IMPRESSION: 1. No fracture or other acute osseous abnormality of the wrist. Bones are diffusely demineralized. 2. Severe degenerative joint changes at the first carpometacarpal joint. The trapezium is not visualized and may be surgically absent. 3. There is mild narrowing of the radiocarpal joint space. [facility]
[2019-05-24 15:20] VITALS: BP 130/78
== END 2019-05-24 16:00 | disposition home or self-care (01) ==
LOC: EDUNIT# → ED 11:42
DX: S06.0X1A Concussion with loss of consciousness of 30 minutes or less, initial encounter (principal); S20.211A Contusion of right front wall of thorax, initial encounter; S63.509A Unspecified sprain of unspecified wrist, initial encounter; W18.09XA Striking against other object with subsequent fall, initial encounter; Y93.01 Activity, walking, marching and hiking; Y92.008 Other place in unspecified non-institutional (private) residence as the place of occurrence of the external cause; Z95.2 Presence of prosthetic heart valve; Z79.01 Long term (current) use of anticoagulants; I10 Essential (primary) hypertension; M47.812 Spondylosis without myelopathy or radiculopathy, cervical region
CPT/HCPCS: 36415; 70450; 71101; 72125; 73110; 80053; 81003; 83690; 85025; 85610; 99284; A9270; 81001; 87086

== ENCOUNTER 2019-07-16 10:39 | Day surgery (SDC) | payer MEDICARE, OTHER ==
[2019-07-16] MEDS ORDERED: LACTATED RINGERS 1,000 ML IV ONE (12:10)
[2019-07-16 14:25] VITALS: BP 129/80
== END 2019-07-16 10:40 | disposition home or self-care (01) ==
LOC: SDS 10:39
PROVIDERS: ATTEND Surgery
PROC: 0DBE8ZX Excision of Large Intestine, Via Natural or Artificial Opening Endoscopic, Diagnostic (ICD-10-PCS; principal; 2019-07-16 11:45)
DX: R19.4 Change in bowel habit (principal); R15.2 Fecal urgency; K64.4 Residual hemorrhoidal skin tags; K57.30 Diverticulosis of large intestine without perforation or abscess without bleeding; K21.9 Gastro-esophageal reflux disease without esophagitis; I10 Essential (primary) hypertension; E66.9 Obesity, unspecified; G47.33 Obstructive sleep apnea (adult) (pediatric); I08.0 Rheumatic disorders of both mitral and aortic valves; Z79.899 Other long term (current) drug therapy; Z79.01 Long term (current) use of anticoagulants; Z95.2 Presence of prosthetic heart valve; Z86.010 Personal history of colon polyps; Z87.891 Personal history of nicotine dependence; Z68.41 Body mass index [BMI] 40.0-44.9, adult
CPT/HCPCS: 45380; 83630; 87015; 87177; 87209; 87272; 87329; 87493; J7120

== ENCOUNTER 2019-07-22 08:00 | Outpatient (CLI) | payer MEDICARE, OTHER | END 2019-07-22 23:59 | disposition home or self-care (01) | LOC: LAB.WCP 08:00 | PROVIDERS: ATTEND Family Medicine | DX: Z79.01 Long term (current) use of anticoagulants (principal); I08.0 Rheumatic disorders of both mitral and aortic valves ==

== ENCOUNTER 2019-07-30 08:00 | Outpatient (CLI) | payer MEDICARE, OTHER | END 2019-07-30 23:59 | disposition home or self-care (01) | LOC: LAB.WCP 08:00 | PROVIDERS: ATTEND Family Medicine | DX: Z79.01 Long term (current) use of anticoagulants (principal); I08.0 Rheumatic disorders of both mitral and aortic valves ==

== ENCOUNTER 2019-08-11 09:06 | Outpatient (CLI) | payer MEDICARE, OTHER ==
[2019-08-11 10:16] VITALS: BP 132/60
--- NOTE | 2019-08-11 10:16 | SLEEP CARE CONSULTATION ---
Information from patient questionnaire entered by Vanda Granados. I have reviewed and concur with the information entered by Vanda Granados. This document represents the service I personally performed and the decisions made by me, Moon Wilder, RN, MSN, MOLD INJECTOR. History of Present Illness Previous diagnosis: Severe, Obstructive Sleep Apnea-Hypopnea Syndrome AHI: 42.2 Reason for CPAP/BiPAP follow up: first compliance Equipment type: BiPAP Equipment obtained from: [facility] Mask style: Full face Mask brand: Respironics ([place]) Backup mask available: Yes Last cushion change: 2 weeks ago and changes every month, washing every few days. Prior sleep studies: Yes Year and Where: [facility] additional information: Medical changes since last seen, is a concussion with loss of consciousness from injury to head by garage door and subsequent fall. Taken to ER by paramedics and evaluated. CAT, MRI and xrays completed and follow up by PCP. He had colonscopy in follow up for evaluation of urgent diarrhea and now evaluation of diet intake to further evaluate symptoms. He was switched from CPAP to BiPAP and pressure has been reduced for comfort. He is having mask leak problems, has talked to RT at [facility] and she was to contact here for a mask fitting. Nothing noted on chart. CPAP Compliance Data - Data Reviewed with Patient Average duration of nightly device use: 6h 18m Compliance rate %: 86.7 Current pressure setting (cmH2O): 23/ Humidity settin Heated hose settin Subjective Missed days of use due to: reports: travel (unexpected overnight. ), other (unknown) Patient concerns: reports: aerophagia ( a few times he has awakened with stomach bloated and has to burp for relief / last time was a week ago. ), mask discomfort (was uncomfortable when too tight), air blowing in eyes, mask leak noise (if unable to control, he will remove mask and sleep another 2 hours. ), dry mouth, nose, throat (mild). denies: condensation in mask/hose, nasal congestion, epistaxis Observed to snore while using device: No Current pressure setting perceived as: comfortable On therapy, patient: reports: more rested overall. denies: sleeping better (mask leaks), drowsiness while driving Initial [place] Sleepiness Scale score: 4 Current [place] Sleepiness Scale score: 6 Allergies and Home Medications Known drug allergies: Yes (see list) Home medication list reviewed: Yes Allergy and home medication list: Medication Name (generic/name brand) Strength & Dosage Metoprolol Tartrate 25mg tab one twice daily Lisinopril 40mg tab one daily Detrol LA 4mg cap one daily Coumadin As directed Voltaren 1% Gel Apply four times daily as needed Triamcinolone Acetonide 0.1% Cream Apply to affected area twice daily Lipitor 40mg tab one daily Zoloft 25mg tab one-two daily at bedtime Nystatin-Triamcinolone 754940-7.1% Apply daily to affected area as needed Zyrtec 10 mg prn Tylenol 500mg 1 tablet twice a day as needed Multivitamins Tab one daily Vitamin C 1000mg tab one daily Prilosec 20mg tab once or twice daily as needed Aspirin 81mg tab one daily Fluticasone Propionate 50mcg/act nasal One spray each nostril twice daily Vitamin D3 400mg tab one daily Allergy List Oxycodone Review of Systems Review of systems same as previous: No (Colonoscopy showed high white cells showing irritation. - food changes/log) Physical Exam Blood Pressure: 132/60 Cuff size: long Heart Rate: 66 O2 Saturation: 96 Height: 5 ft 11.5 in Weight: 296 lb Weight change since last visit: gained 10 pounds Body Mass Index: 40.7 BMI Classification: Obesity Class 3 Impression and Plan 1. Obstructive Sleep Apnea-Hypopnea Syndrome, severe, with good treatment compliance and slightly elevated residual AHI. On BiPAP therapy, the patient is more rested overall. The pressure reduction has resolved pressure discomfort. However, he had intermitent aerophagia, so I will lower BiPAP pressure further to 22/[id number]. He is to contact me if pressure change does not resolve symptoms or is uncomfortable. His sleep is fragmented by his mask leaks which seem to occur most often when he is sleeping on his side , his preferred position. He was shown a CPAP pillow with cutouts on the side that may reduce mask leaks. This style and others can be found online for about $60. I also advised him to wash mask daily to improve seal. For convenience he can get CPAP wipes. 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 For oral dryness, he is to increase humidity to 5. If not resolved, he can start reducing the heated hose unless condensation. Control of his mask leaks will also reduce his oral dryness. In addition, patient has gained weight increasing his BME to 40, morbid obesity. Thus he was counseled how his weight gain and obesity can increase his apnea risk , BIPAP pressure as well as overall health. He is advised to lose weight and discuss further with PCP. He can start by reducing food portions and refined food. He agreed with plan. Patient's apnea severity and rationale for treatment to reduce apnea, improve sleep quality and reduce cardiovascular and cerebrovascular events was reviewed. I also reviewed the benefit of consistent device use of BiPAP for hypertension, cardiac disease, gastric reflux, depression/anxiety. * * Change BiPAP pressure to 22/18 cmH2O * Consider CPAP pillow * Adjust humidity and heated hose. * Clean mask daily. * Notify me if snoring with mask or feeling that the pressure is too much or too little * Attempt to lose weight * Return for follow up in 1-2 months , or sooner if concerns arise I spent 100% of this 43 minute visit face to face with the patient with greater than 50% of this was spent time counseling the patient and coordination of care.
== END 2019-08-11 09:07 | disposition home or self-care (01) ==
LOC: SC 09:06
PROVIDERS: ATTEND Nurse Practitioner Family
DX: G47.33 Obstructive sleep apnea (adult) (pediatric) (principal)
CPT/HCPCS: 99215; G0463; 99212

== ENCOUNTER 2019-08-13 08:00 | Outpatient (CLI) | payer MEDICARE, OTHER | END 2019-08-13 23:59 | disposition home or self-care (01) | LOC: LAB.WCP 08:00 | PROVIDERS: ATTEND Family Medicine | DX: Z79.01 Long term (current) use of anticoagulants (principal); I08.0 Rheumatic disorders of both mitral and aortic valves ==

== ENCOUNTER 2019-09-03 08:00 | Outpatient (CLI) | payer MEDICARE, OTHER | END 2019-09-03 23:59 | disposition home or self-care (01) | LOC: LAB.WCP 08:00 | PROVIDERS: ATTEND Family Medicine | DX: Z79.01 Long term (current) use of anticoagulants (principal); I08.0 Rheumatic disorders of both mitral and aortic valves ==

== ENCOUNTER 2019-09-22 08:00 | Outpatient (CLI) | payer MEDICARE, OTHER | END 2019-09-22 23:59 | disposition home or self-care (01) | LOC: LAB.WCP 08:00 | PROVIDERS: ATTEND Family Medicine | DX: Z79.01 Long term (current) use of anticoagulants (principal); I08.0 Rheumatic disorders of both mitral and aortic valves ==

== ENCOUNTER 2019-10-01 08:00 | Outpatient (CLI) | payer MEDICARE, OTHER | END 2019-10-01 23:59 | disposition home or self-care (01) | LOC: LAB.WCP 08:00 | PROVIDERS: ATTEND Family Medicine | DX: Z79.01 Long term (current) use of anticoagulants (principal); I08.0 Rheumatic disorders of both mitral and aortic valves ==

== ENCOUNTER 2019-10-17 08:00 | Outpatient (CLI) | payer MEDICARE, OTHER | END 2019-10-17 23:59 | disposition home or self-care (01) | LOC: LAB.WCP 08:00 | PROVIDERS: ATTEND Physician Assistant | DX: Z79.01 Long term (current) use of anticoagulants (principal); I08.0 Rheumatic disorders of both mitral and aortic valves ==

== ENCOUNTER 2019-11-21 08:00 | Outpatient (CLI) | payer MEDICARE, OTHER | END 2019-11-21 23:59 | disposition home or self-care (01) | LOC: LAB.WCP 08:00 | PROVIDERS: ATTEND Family Medicine | DX: I08.0 Rheumatic disorders of both mitral and aortic valves (principal); Z79.01 Long term (current) use of anticoagulants ==

== ENCOUNTER 2019-11-24 11:06 | Outpatient (CLI) | payer MEDICARE, OTHER ==
[2019-11-24 12:27] VITALS: BP 120/66
--- NOTE | 2019-11-24 12:27 | SLEEP CARE CONSULTATION ---
Information from patient questionnaire entered by Jaci Santamaria. I have reviewed and concur with the information entered by Jaci Santamaria. This document represents the service I personally performed and the decisions made by me, Moon Wilder, RN, MSN, ENGINE SETTER. History of Present Illness Previous diagnosis: Severe, Obstructive Sleep Apnea-Hypopnea Syndrome AHI: 42.2 Reason for follow up: other (6 week) Equipment type: BiPAP (and CPAP) Equipment obtained from: [employer] Mask style: Full face Mask brand: Resmed (Air Fit) Backup mask available: Yes (Dreamwear full face ) Last cushion change: 2 months ago obtained whole mask set HPI additional information: He obtained a CPAP pillow but did not reduce mask leaks not matter what his sleeping position is. The mask was leaking so loud with fart noises that it woke his spouse. It seemed to leak on top of mask not where manzano us. The BiPAP pressure reduction was not enough and still seemed too high and uncomfortable so went back to using CPAP until he could be seen here. I was out sick at his last appointment mid September. CPAP Compliance Data - Data Reviewed with Patient Average duration of nightly device use: 3 hours 16 minutes Compliance rate %: 40 (BiPAP 09/08 to 10/07 - CPAP 13% used 5 days only since with AHI 13. ) Humidity settin Heated hose settin Average residual AHI: 15.5 Central apnea: 7.4 Obstructive apnea: 5.8 Hypopnea: 2.2 Average large leak: 25 minutes Subjective Missed days of use due to: reports: illness (patient missed use of CPAP and BiPAP due to repeated sinusitis infection ) Patient concerns: reports: aerophagia (with BiPAP intermittently ), mask discomfort (with BiPAP mask too tight to control mask leaks. ), air blowing in eyes (with BiPAP pressure too high ), mask leak noise, other (headache when had sinusitis ). denies: condensation in mask/hose, nasal congestion, dry mouth, nose, throat, epistaxis Observed to snore while using device: No Current pressure setting perceived as: too high On therapy, patient: reports: other (feels he is able to sleep better with CPAP as pressure range lower ) Initial [place] Sleepiness Scale score: 4 Current [place] Sleepiness Scale score: 8 Allergies and Home Medications Known drug allergies: Yes (see list ) Home medication list reviewed: Yes (no change from last visit. ) Review of Systems Review of systems same as previous: No (sinusitis that required antibiotics ) Physical Exam Blood Pressure: 120/66 Cuff size: long Heart Rate: 67 O2 Saturation: 94 Height: 5 ft 11.5 in Weight: 286 lb Weight change since last visit: lost 10 pounds Body Mass Index: 39.3 BMI Classification: Obesity Class 2 Impression and Plan 1. Obstructive Sleep Apnea-Hypopnea Syndrome, severe, with fair treatment compliance and elevated residual AHI both on BiPAP and CPAP he used. On CPAP therapy, the patient has better sleep quality and is more rested overall as the pressure range is more comfortable. The patient did not contact me after I reduced his BiPAP pressure for comfort. Patient informed any time I make a pressure change is it does not resolve the problem or is uncomfortable he is to contact me. If I am not available, the staff can contact Dr. Tijerina. After review of his last titration study and his recent compliance reports both CPAP and BiPAP, I will lower the BiPAP to 18/[id number]. I reviewed again the reason he was changed to BiPAP as CPAP ineffective in controlling his apnea and counseled him on the importance of controlling his apnea better and using the device with all sleep. He agreed to restart the BiPAP. This new range includes a wider range for expiration that may assist with his obesity hypoventilation. This should also reduce the aerophagia and discomfort of the higher previous pressure. He is to call me later this week if this is more comfortable. He is also advised to retry the Dreamwear full face mask as he felt it worked the best so far at his study. In addition he is advised to retry the CPAP pillow as well at new lower pressure. Hopefully the mask will be more comfortable by loosening it up with lower pressure range. He is also to adjust humidity for oral dryness. Patient's apnea severity and rationale for treatment to reduce apnea, improve sleep quality and reduce cardiovascular and cerebrovascular events was reviewed. I also reviewed the benefit of consistent device use of BiPAP for hypertension, cardiac disease, diabetes, gastric reflux, depression/anxiety. * * Restart BiPAP and change BiPAP pressure to 18/10 cmH2O * Try new mask and CPAP pillow * Adjust humidity * Notify me if snoring with mask or feeling that the pressure is too much or too little * continue to lose weight * Call this office if any problems using CPAP * Return for follow up in 1-2 months , or sooner if concerns arise Time Spent with Patient (minutes): 45 I spent 100% of this visit face to face with the patient with greater than 50% of this was spent time counseling the patient and coordination of care.
== END 2019-11-24 11:07 | disposition home or self-care (01) ==
LOC: SC 11:06
PROVIDERS: ATTEND Nurse Practitioner Family
DX: G47.33 Obstructive sleep apnea (adult) (pediatric) (principal); E66.9 Obesity, unspecified; Z68.39 Body mass index [BMI] 39.0-39.9, adult
CPT/HCPCS: 99215; G0463; 99212

== ENCOUNTER 2019-12-02 23:49 | Outpatient (CLI) | payer MEDICARE, OTHER ==
[2019-12-02 12:20] LABS: CHOL/HDL RATIO 4.1 (<5.0); CHOLESTEROL 172 mg/dL; HDL CHOLESTEROL 42 mg/dL; LDL CHOLESTEROL,CALCULATED 94 mg/dL; LDL/HDL RATIO 2.2 (<3.6); VLDL CHOLESTEROL 36 mg/dL
== END 2019-12-02 23:59 | disposition home or self-care (01) ==
LOC: LAB.WCP 23:49
PROVIDERS: ATTEND Family Medicine
DX: E78.5 Hyperlipidemia, unspecified (principal)
CPT/HCPCS: 36415; 80061; 83721

== ENCOUNTER 2019-12-19 08:00 | Outpatient (CLI) | payer MEDICARE, OTHER | END 2019-12-19 23:59 | disposition home or self-care (01) | LOC: LAB.WCP 08:00 | PROVIDERS: ATTEND Family Medicine | DX: I08.0 Rheumatic disorders of both mitral and aortic valves (principal); Z79.01 Long term (current) use of anticoagulants ==

== ENCOUNTER 2020-01-16 08:00 | Outpatient (CLI) | payer MEDICARE, OTHER | END 2020-01-16 23:59 | disposition home or self-care (01) | LOC: LAB.WCP 08:00 | PROVIDERS: ATTEND Family Medicine | DX: I08.0 Rheumatic disorders of both mitral and aortic valves (principal); Z79.01 Long term (current) use of anticoagulants ==

== ENCOUNTER 2020-01-29 08:00 | Outpatient (CLI) | payer MEDICARE, OTHER | END 2020-01-29 23:59 | disposition home or self-care (01) | LOC: LAB.WCP 08:00 | PROVIDERS: ATTEND Family Medicine | DX: I08.0 Rheumatic disorders of both mitral and aortic valves (principal); Z79.01 Long term (current) use of anticoagulants ==

== ENCOUNTER 2020-02-26 08:00 | Outpatient (CLI) | payer MEDICARE, OTHER | END 2020-02-26 23:59 | disposition home or self-care (01) | LOC: LAB.WCP 08:00 | PROVIDERS: ATTEND Family Medicine | DX: I08.0 Rheumatic disorders of both mitral and aortic valves (principal); Z79.01 Long term (current) use of anticoagulants ==

== ENCOUNTER 2020-03-25 08:00 | Outpatient (CLI) | payer MEDICARE, OTHER | END 2020-03-25 23:59 | disposition home or self-care (01) | LOC: LAB.WCP 08:00 | PROVIDERS: ATTEND Family Medicine | DX: I08.0 Rheumatic disorders of both mitral and aortic valves (principal); Z79.01 Long term (current) use of anticoagulants ==

== ENCOUNTER 2020-04-08 09:57 | Outpatient (CLI) | payer MEDICARE, OTHER ==
[2020-04-08 11:06] VITALS: BP 120/68
--- NOTE | 2020-04-08 11:06 | SLEEP CARE CONSULTATION ---
Information from patient questionnaire entered by Jaci Santamaria. I have reviewed and concur with the information entered by Jaci Santamaria. This document represents the service I personally performed and the decisions made by me, Moon Wilder, RN, MSN, PHYSICIAN OFFICE CLIN ASST. History of Present Illness Service Date and Time: 04/08/2020 0957 Previous diagnosis: Severe, Obstructive Sleep Apnea-Hypopnea Syndrome AHI: 42.2 (in 2017)(RDI-26.5 in 1999) Reason for follow up: other (2 month) Equipment type: BiPAP Equipment obtained from: [employer] Mask style: Full face Mask brand: Respironics (Dreamwear) Backup mask available: Yes Last cushion change: 3 weeks ago Prior sleep studies: Yes Year and Where: 2017 - [facility] Type of Sleep Study: Polysomnography HPI additional information: CPAP stopped and BiPAP used now. Pressure had to be reduced further to 12/8cmH20 for comfort. The new mask resolved mask leaks better but caused discomfort of nose and upper lip - saw dental hygienist and stopped. Prefers Dreamwear full face mask but larger leaks. Tried CPAP pillow but unable to sleep in comfortable position as current depth. he has not yet tried to remove one of layers as he prefers to sleep on his side due to post nasal drainage. He uses sinus flush HS. CPAP Compliance Data - Data Reviewed with Patient Average duration of nightly device use: 7.5 Compliance rate %: 100 (60 days) Current pressure setting (cmH2O): 12/8 Humidity settin Heated hose settin Average residual AHI: 9.0 Central apnea: 1.1 Obstructive apnea: 3.0 Hypopnea: 4.9 Average large leak: 1 hr 50 min 45 sec Subjective Patient concerns: reports: mask discomfort (of Res med FFM), mask leak noise (when he rolls to side and adjusts mask), nasal congestion (mild), dry mouth, nose, throat (dry mouth - mild ). denies: aerophagia, air blowing in eyes, condensation in mask/hose, epistaxis, other Observed to snore while using device: No (snored on Res Med mask ) Current pressure setting perceived as: comfortable On therapy, patient: reports: sleeping better, awakening more refreshed, being more awake and alert during the day, more rested overall. denies: drowsiness while driving Initial [place] Sleepiness Scale score: 4 (in 2012) Current [place] Sleepiness Scale score: 4 Allergies and Home Medications Known drug allergies: Yes (see above) Home medication list reviewed: No (no changes stated except coumadin) Review of Systems Review of systems same as previous: Yes Physical Exam Blood Pressure: 120/68 Cuff size: long Heart Rate: 62 O2 Saturation: 97 Height: 5 ft 11.5 in Weight: 287 lb Body Mass Index: 39.4 BMI Classification: Obese Impression and Plan 1. Obstructive Sleep Apnea-Hypopnea Syndrome, severe, with good treatment compliance and mild elevated residual AHI. On CPAP therapy, the patient has better sleep quality and is more rested overall. The current pressure is now comfortable and resolved aerophagia so I will not change at this time but concentrate on mask fit. I will order for mask refitting to work with Dreamwear full face mask to reduce mask leaks which are contributing to current elevation of residual AHI. In addition, he agreed to try adapting his CPAP pillow to accommodate for comfort and reduce his mask leaks when in lateral recumbent position. Oral dryness can be reduced by adjusting heated hose lower or by adjusting both settings. Printed instructions given on how to change humidity and heated hose settings with rationale explaining why to change. Oral dryness can also be reduced by reducing mask leaks. Patient advised that chronic oral dryness can affect dental health and advised to follow up with dentist. In addition, there are oral dryness products that can be used to reduce dryness. Patient has just seen dentist and was told to try xylimelts which he just bought and will try tonight. Patient's apnea severity and rationale for treatment to reduce apnea, improve sleep quality and reduce cardiovascular and cerebrovascular events was reviewed. I also reviewed the benefit of consistent device use of CPAP for his arrhythmia. * Continue auto BiPAP pressure at 12/8cmH2O * mask refitting * Implement methods to reduce oral dryness and mask leaks. * Notify me if snoring with mask or feeling that the pressure is too much or too little * Attempt to lose weight * Call this office if any problems using BiPAP * Return for follow up in 1-2 months , or sooner if concerns arise Visit Type: In Office Time Spent with Patient (minutes): 30 Provider Statement: I spent 100% of the Face to Face Visit with the patient with greater than 50% spent counseling the patient and coordination of care.
== END 2020-04-08 09:58 | disposition home or self-care (01) ==
LOC: SC 09:57
PROVIDERS: ATTEND Nurse Practitioner Family
DX: G47.33 Obstructive sleep apnea (adult) (pediatric) (principal); E66.9 Obesity, unspecified; Z68.39 Body mass index [BMI] 39.0-39.9, adult
CPT/HCPCS: 99214; G0463; 99212

== ENCOUNTER 2020-04-23 08:00 | Outpatient (CLI) | payer MEDICARE, OTHER | END 2020-04-23 23:59 | disposition home or self-care (01) | LOC: LAB.WCP 08:00 | PROVIDERS: ATTEND Family Medicine | DX: Z95.2 Presence of prosthetic heart valve (principal); Z79.01 Long term (current) use of anticoagulants ==

== ENCOUNTER 2020-04-28 08:00 | Outpatient (CLI) | payer MEDICARE, OTHER | END 2020-04-28 23:59 | disposition home or self-care (01) | LOC: LAB.WCP 08:00 | PROVIDERS: ATTEND Family Medicine | DX: Z95.2 Presence of prosthetic heart valve (principal); I08.0 Rheumatic disorders of both mitral and aortic valves; Z79.01 Long term (current) use of anticoagulants ==

== ENCOUNTER 2020-05-05 08:00 | Outpatient (CLI) | payer MEDICARE, OTHER | END 2020-05-05 23:59 | disposition home or self-care (01) | LOC: LAB.WCP 08:00 | PROVIDERS: ATTEND Family Medicine | DX: Z95.2 Presence of prosthetic heart valve (principal); Z79.01 Long term (current) use of anticoagulants ==

== ENCOUNTER 2020-05-26 08:00 | Outpatient (CLI) | payer MEDICARE, OTHER | END 2020-05-26 23:59 | disposition home or self-care (01) | LOC: LAB.WCP 08:00 | PROVIDERS: ATTEND Family Medicine | DX: Z95.2 Presence of prosthetic heart valve (principal); Z79.01 Long term (current) use of anticoagulants ==

== ENCOUNTER 2020-06-03 09:32 | Outpatient (CLI) | payer MEDICARE, OTHER ==
--- NOTE | 2020-06-03 10:29 | SLEEP CARE CONSULTATION ---
Information from patient questionnaire entered by Jaci Santamaria. I have reviewed and concur with the information entered by Jaci Santamaria. This document represents the service I personally performed and the decisions made by me, Mitra Lu ARNP. History of Present Illness Service Date and Time: 06/03/2020931 Previous diagnosis: Severe, Obstructive Sleep Apnea-Hypopnea Syndrome AHI: 42.2 (in 2017)(RDI-26.5 in 1999) Reason for follow up: other (2 month) Equipment type: BiPAP Equipment obtained from: [employer] (getting supplies as needed) Mask style: Full face Mask brand: Respironics Backup mask available: Yes (old mask from CPAP machine) Last cushion change: 3 weeks ago Prior sleep studies: Yes Year and Where: 2016 - [facility] Type of Sleep Study: Polysomnography HPI additional information: KATHERINE MISHRA was diagnosed to have severe, AHI 42.2, obstructive sleep apnea- hypopnea syndrome and returned today for BIPAP therapy two month follow-up. He does feel he is having improvement overall, feel he has more energy and less tired during the day. He likes the full face mask and with little adjustments has not had any issues with mask leaks or air in his eyes. He feels the pressures are comfortable. He is trying with his to lose weight but has been having some physical challenges due to leg weaknesses and limited activities by the Covid pandemic. Sleep Study - Results Prior sleep studies: Yes Year and Where: 2016 - [facility] CPAP Compliance Data - Data Reviewed with Patient Average duration of nightly device use: 6.4 Compliance rate %: 100 (60 days) Current pressure setting (cmH2O): 12/8 Humidity settin Heated hose settin Average residual AHI: 7.2 Central apnea: 2.8 Obstructive apnea: 2.5 Average large leak: 29 min 54 sec Subjective Patient concerns: reports: aerophagia, nasal congestion (has some allergies, doesn't thinks its the mask; uses zyrte and flonase which helps), dry mouth, nose, throat (dry mouth, 1-2 times a week; he has humiditiy up all the way and hose at 3; good balance). denies: mask discomfort, air blowing in eyes, mask leak noise, condensation in mask/hose Observed to snore while using device: No Current pressure setting perceived as: comfortable On therapy, patient: reports: sleeping better, awakening more refreshed, being more awake and alert during the day, more rested overall. denies: drowsiness while driving Initial [place] Sleepiness Scale score: 4 (in 2012) Current [place] Sleepiness Scale score: 6 Allergies and Home Medications Drug allergies reviewed: Yes (oxycodone, famotidine) Home medication list reviewed: Yes (no changes) Review of Systems Review of systems same as previous: Yes (no changes) Physical Exam Heart Rate: 57 O2 Saturation: 97 Height: 5 ft 11.5 in Weight: 286 lb 9.6 oz Body Mass Index: 39.4 BMI Classification: Obese Impression and Plan 1. Obstructive Sleep Apnea-Hypopnea Syndrome, severe, with good treatment compliance and fair apnea control, but has elevated residual AHI. We will increase his pressures to try and get improvement on his apnea control and have him follow up in a month. On BIPAP therapy, there is improved sleep quality and feels more rested overall. Patient's apnea severity and rationale for treatment to reduce apnea, improve sleep quality and reduce cardiovascular and cerebrovascular events was reviewed. I also reviewed the benefit of consistent device use of BIPAP for hypertension, cardiac disease, arrhythmia and GERD. Change BiPAP pressure at IPAP 14.0 and EPAP 10.0 cm H2O. Notify me if snoring with the mask or feeling that the pressure is too much or too little. Continue to lose weight. Return for follow-up in 1 month, or sooner if concerns arise. Visit Type: In Office Time Spent with Patient (minutes): 20 Provider Statement: I spent 100% of the Face to Face Visit with the patient with greater than 50% spent counseling the patient and coordination of care.
== END 2020-06-03 09:33 | disposition home or self-care (01) ==
LOC: SC 09:32
PROVIDERS: ATTEND Nurse Practitioner Family
DX: G47.33 Obstructive sleep apnea (adult) (pediatric) (principal); E66.9 Obesity, unspecified; Z68.39 Body mass index [BMI] 39.0-39.9, adult
CPT/HCPCS: 99213; G0463; 99212

== ENCOUNTER 2020-06-16 08:00 | Outpatient (CLI) | payer MEDICARE, OTHER | END 2020-06-16 23:59 | disposition home or self-care (01) | LOC: LAB.WCP 08:00 | PROVIDERS: ATTEND Family Medicine | DX: Z95.2 Presence of prosthetic heart valve (principal); Z79.01 Long term (current) use of anticoagulants ==

== ENCOUNTER 2020-06-23 08:00 | Outpatient (CLI) | payer MEDICARE, OTHER | END 2020-06-23 23:59 | disposition home or self-care (01) | LOC: LAB.WCP 08:00 | PROVIDERS: ATTEND Family Medicine | DX: Z95.2 Presence of prosthetic heart valve (principal); Z79.01 Long term (current) use of anticoagulants ==

== ENCOUNTER 2020-07-06 10:36 | Outpatient (CLI) | payer MEDICARE, OTHER ==
--- NOTE | 2020-07-06 11:15 | SLEEP CARE CONSULTATION ---
Information from patient questionnaire entered by Jaci Santamaria. I have reviewed and concur with the information entered by Jaci Santamaria. This document represents the service I personally performed and the decisions made by , Mitra Lu ARNP. History of Present Illness Service Date and Time: 07/06/2020 1036 Previous diagnosis: Severe, Obstructive Sleep Apnea-Hypopnea Syndrome AHI: 42.2 (in 2017)(RDI - 26.5 in 1999) Reason for follow up: one month (with pressure change) Equipment type: BiPAP Equipment obtained from: [employer] (getting supplies as needed) Mask style: Full face Mask brand: Respironics Backup mask available: Yes (old mask) Last cushion change: 2 weeks ago Prior sleep studies: Yes [facility] and [facility]: [facility] HPI additional information: KATHERINE MISHRA was diagnosed to have severe, AHI 42.2, obstructive sleep apnea- hypopnea syndrome and returned today for BIPAP therapy one month pressure change follow-up. Sleep Study - Results Prior sleep [facility]: Yes [facility] CPAP Compliance Data - Data Reviewed with Patient Average duration of nightly device use: 7.95 Compliance rate %: 93.3 Current pressure setting (cmH2O): 13/9 Humidity settin Heated hose settin Average residual AHI: 9.6 Central apnea: 6.1 Obstructive apnea: 2.9 Hypopnea: 0.5 Average large leak: 28 sec Subjective Patient concerns: reports: aerophagia (a little bit), mask discomfort (due to tightening and getting sore on lip), air blowing in eyes (a little), mask leak noise (adjusting straps tight which helps), dry mouth, nose, throat (he tends to breath through mouth). denies: condensation in mask/hose, nasal congestion, epistaxis, other Observed to snore while using device: No Current pressure setting perceived as: too high (possible) On therapy, patient: reports: sleeping better, awakening more refreshed, being more awake and alert during the day, more rested overall. denies: drowsiness while driving Initial [place] Sleepiness Scale score: 4 (in 2011) Current [place] Sleepiness Scale score: 4 Allergies and Home Medications Drug allergies reviewed: Yes (oycodone, famotidine) Home medication list reviewed: Yes (adjustments on his coumadin) Review of Systems Review of systems same as previous: No (no changes) Physical Exam Heart Rate: 58 O2 Saturation: 96 Height: 5 ft 11.5 in Weight: 288 lb Body Mass Index: 39.6 BMI Classification: Obese Impression and Plan 1. Obstructive Sleep Apnea-Hypopnea Syndrome, severe, with good treatment compliance and fair apnea control, but has elevated residual AHI. On BIPAP therapy, there is improved sleep quality and feels more rested overall. He continues to have problems with aerophagia and feels the pressure is too high. His mask is not comfortable because he has to tighten is so much to reduce air leaking and keep on his face that his skin around nose is getting sore. His AHI is more elevated at 9.6 and his central apnea has also elevated to 6.1 from 2.8 at last visit. I consulted with our medical examiner and he suggested a reduction in pressures due to elevated central apnea. Patient also states that he preferred the pressures around 8 cm H2O as far as comfort and reduced mask issues. He also continues to have issue with oral dryness. Oral dryness can be reduced by adjusting humidity setting higher or heated hose lower or by adjusting both settings. Oral dryness can also be reduced by reducing mask leaks. Patient's apnea severity and rationale for treatment to reduce apnea, improve sleep quality and reduce cardiovascular and cerebrovascular events was reviewed. I also reviewed the benefit of consistent device use of BIPAP for hypertension, cardiac disease, arrhythmia, and gastric reflux. Change auto BiPAP pressure at 10/6 cm H2O. Notify me if snoring with the mask or feeling that the pressure is too much or too little. Attempt to lose weight. Return for follow-up in 1-2 months, or sooner if concerns arise. Visit Type: In Office Time Spent with Patient (minutes): 18 Provider Statement: I spent 100% of the Face to Face Visit with the patient with greater than 50% spent counseling the patient and coordination of care.
== END 2020-07-06 10:37 | disposition home or self-care (01) ==
LOC: SC 10:36
PROVIDERS: ATTEND Nurse Practitioner Family
DX: G47.33 Obstructive sleep apnea (adult) (pediatric) (principal); E66.9 Obesity, unspecified; Z68.39 Body mass index [BMI] 39.0-39.9, adult
CPT/HCPCS: 99213; G0463; 99212

== ENCOUNTER 2020-07-07 08:00 | Outpatient (CLI) | payer MEDICARE, OTHER | END 2020-07-07 23:59 | disposition home or self-care (01) | LOC: LAB.WCP 08:00 | PROVIDERS: ATTEND Family Medicine | DX: Z79.01 Long term (current) use of anticoagulants (principal) ==

== ENCOUNTER 2020-07-21 08:00 | Outpatient (CLI) | payer MEDICARE, OTHER | END 2020-07-21 23:59 | disposition home or self-care (01) | LOC: LAB.WCP 08:00 | PROVIDERS: ATTEND Family Medicine | DX: Z79.01 Long term (current) use of anticoagulants (principal) ==

== ENCOUNTER 2020-07-28 08:00 | Outpatient (CLI) | payer MEDICARE, OTHER | END 2020-07-28 23:59 | disposition home or self-care (01) | LOC: LAB.WCP 08:00 | PROVIDERS: ATTEND Family Medicine | DX: Z79.01 Long term (current) use of anticoagulants (principal) ==

== ENCOUNTER 2020-08-11 08:00 | Outpatient (CLI) | payer MEDICARE, OTHER | END 2020-08-11 23:59 | disposition home or self-care (01) | LOC: LAB.WCP 08:00 | PROVIDERS: ATTEND Family Medicine | DX: Z79.01 Long term (current) use of anticoagulants (principal) ==

== ENCOUNTER 2020-08-17 09:27 | Outpatient (CLI) | payer MEDICARE, OTHER ==
--- NOTE | 2020-08-17 09:58 | SLEEP CARE CONSULTATION ---
Information from patient questionnaire entered by Jaci Santamaria. I have reviewed and concur with the information entered by Jaci Santamaria. This document represents the service I personally performed and the decisions made by , Mitra Lu ARNP. History of Present Illness Service Date and Time: 08/17/2020926 Previous diagnosis: Severe, Obstructive Sleep Apnea-Hypopnea Syndrome AHI: 42.2 (in 2017)(RDI-26.5 in 1999) Reason for follow up: other (6 week with pressure change) Equipment type: BiPAP Equipment obtained from: [employer] (getting supplies as needed) Mask style: Full face Backup mask available: No (old mask) Last cushion change: 2 weeks ago Prior sleep studies: Yes Year and Where: 2017 - [facility] Sleep HPI additional information: KATHERINE MISHRA was diagnosed to have severe, AHI 42.2, obstructive sleep apnea- hypopnea syndrome and returned today for BIPAP therapy 6 week pressure change follow-up. CPAP Compliance Data - Data Reviewed with Patient Average duration of nightly device use: 8.25 Compliance rate %: 96.7 Current pressure setting (cmH2O): 10/6 Humidity settin Heated hose settin Average residual AHI: 3.4 Average large leak: 4 min Subjective Patient concerns: reports: mask leak noise (some air leak with manzano), nasal congestion (allergies this season using Flonase and this takes care of problem), dry mouth, nose, throat (little dry mouth, improved from before). denies: aerophagia, mask discomfort, air blowing in eyes, condensation in mask/hose, epistaxis, other Observed to snore while using device: No Current pressure setting perceived as: comfortable On therapy, patient: reports: sleeping better, awakening more refreshed, being more awake and alert during the day, more rested overall. denies: drowsiness while driving Initial [place] Sleepiness Scale score: 4 (in 2011) Current [place] Sleepiness Scale score: 4 Allergies and Home Medications Drug allergies reviewed: Yes (oxycodone, famotidine) Home medication list reviewed: Yes (no changes) Review of Systems Review of systems same as previous: Yes (no changes) Physical Exam Heart Rate: 63 O2 Saturation: 96 Height: 5 ft 11.5 in Weight: 293 lb Body Mass Index: 40.3 BMI Classification: Morbidly Obese Impression and Plan 1. Obstructive Sleep Apnea-Hypopnea Syndrome, severe, with good treatment compliance and good apnea control. On CPAP therapy, the patient has better sleep quality and is more rested overall. He feels like the pressure change fixed his problems from last appointment and he is resting better with less leaking, aerophagia has resolved and he does not have to tighten his headgear real tight to keep on his full face mask. We will keep the pressures the same and he may follow up again in a year. Patient has gained weight over the last month. Currently patients BMI is 39.6. Obesity increases the risk of apnea, CPAP pressure requirements and overall health risks especially cardiovascular and diabetes. Thus patient is advised to lose weight. Weight loss can be done with reducing portion size, reducing refined foods and balancing content with vegetables, fruit and protein. In addition tracking food intake will allow awareness of how to modify diet to achieve weight loss goals. A diet consultation can be helpful in achieving optimal weight loss goals. The BMI chart was reviewed. Patient encouraged to discuss their weight loss goals with their PCP and consider a referral to a resource manager.Patient's apnea severity and rationale for treatment to reduce apnea, improve sleep quality and reduce cardiovascular and cerebrovascular events was reviewed. I also reviewed the benefit of consistent device use of CPAP for hypertension, cardiac disease, arrhythmia, and gastric reflux. * Continue BIPAP pressure at 10/6 cmH2O * Notify me if snoring with mask or feeling that the pressure is too much or too little * Attempt to lose weight * Call this office if any problems using CPAP * Return for follow up in 1 year, or sooner if concerns arise Counseling Topics: Spare mask, Weight loss health impact Visit Type: In Office Time Spent with Patient (minutes): 22 Provider Statement: I spent 100% of the Face to Face Visit with the patient with greater than 50% spent counseling the patient and coordination of care.
== END 2020-08-17 09:28 | disposition home or self-care (01) ==
LOC: SC 09:27
PROVIDERS: ATTEND Nurse Practitioner Family
DX: G47.33 Obstructive sleep apnea (adult) (pediatric) (principal); E66.01 Morbid (severe) obesity due to excess calories; Z68.41 Body mass index [BMI] 40.0-44.9, adult
CPT/HCPCS: 99212; G0463

== ENCOUNTER 2020-08-25 08:00 | Outpatient (CLI) | payer MEDICARE, OTHER | END 2020-08-25 23:59 | disposition home or self-care (01) | LOC: LAB.WCP 08:00 | PROVIDERS: ATTEND Family Medicine | DX: Z79.01 Long term (current) use of anticoagulants (principal) ==

== ENCOUNTER 2020-09-03 08:00 | Outpatient (CLI) | payer MEDICARE, OTHER | END 2020-09-03 23:59 | disposition home or self-care (01) | LOC: LAB.WCP 08:00 | PROVIDERS: ATTEND Physician Assistant | DX: Z79.01 Long term (current) use of anticoagulants (principal) ==

== ENCOUNTER 2020-09-20 08:00 | Outpatient (CLI) | payer MEDICARE, OTHER | END 2020-09-20 23:59 | disposition home or self-care (01) | LOC: LAB.WCP 08:00 | PROVIDERS: ATTEND Family Medicine | DX: Z79.01 Long term (current) use of anticoagulants (principal) ==

== ENCOUNTER 2020-09-27 08:00 | Outpatient (CLI) | payer MEDICARE, OTHER | END 2020-09-27 23:59 | disposition home or self-care (01) | LOC: LAB.WCP 08:00 | PROVIDERS: ATTEND Family Medicine | DX: Z79.01 Long term (current) use of anticoagulants (principal) ==

== ENCOUNTER 2020-10-11 08:00 | Outpatient (CLI) | payer MEDICARE, OTHER | END 2020-10-11 23:59 | disposition home or self-care (01) | LOC: LAB.WCP 08:00 | PROVIDERS: ATTEND Nurse Practitioner | DX: Z79.01 Long term (current) use of anticoagulants (principal) ==

== ENCOUNTER 2020-10-18 08:00 | Outpatient (CLI) | payer MEDICARE, OTHER | END 2020-10-18 23:59 | disposition home or self-care (01) | LOC: LAB.WCP 08:00 | PROVIDERS: ATTEND Family Medicine | DX: Z79.01 Long term (current) use of anticoagulants (principal) ==

== ENCOUNTER 2020-10-25 08:00 | Outpatient (CLI) | payer MEDICARE, OTHER | END 2020-10-25 23:59 | disposition home or self-care (01) | LOC: LAB.N 08:00 | PROVIDERS: ATTEND Family Medicine | DX: Z79.01 Long term (current) use of anticoagulants (principal) ==

== ENCOUNTER 2020-10-27 08:00 | Outpatient (CLI) | payer MEDICARE, OTHER | END 2020-10-27 23:59 | disposition home or self-care (01) | LOC: LAB.WCP 08:00 | PROVIDERS: ATTEND Family Medicine | DX: Z79.01 Long term (current) use of anticoagulants (principal) ==

== ENCOUNTER 2020-11-22 08:00 | Outpatient (CLI) | payer MEDICARE, OTHER | END 2020-11-22 23:59 | disposition home or self-care (01) | LOC: LAB.N 08:00 | PROVIDERS: ATTEND Family Medicine | DX: Z79.01 Long term (current) use of anticoagulants (principal) ==

== ENCOUNTER 2020-12-20 08:00 | Outpatient (CLI) | payer MEDICARE, OTHER | END 2020-12-20 23:59 | disposition home or self-care (01) | LOC: LAB.WCP 08:00 | PROVIDERS: ATTEND Family Medicine | DX: Z79.01 Long term (current) use of anticoagulants (principal) ==

== ENCOUNTER 2021-01-17 09:26 | Outpatient (CLI) | payer MEDICARE, OTHER ==
[2021-01-17 12:42] LABS: BASOPHILS # (AUTO) 0.1 10^3/uL (0.0-0.1); BASOPHILS % (AUTO) 0.9 %; EOSINOPHILS # (AUTO) 0.2 10^3/uL (0.0-0.7); EOSINOPHILS % (AUTO) 3.7 %; HGB - HEMOGLOBIN 15.6 g/dL (14.0-18.0); LYMPHOCYTES # (AUTO) 1.8 10^3/uL (1.5-3.5); LYMPHOCYTES % (AUTO) 31.6 %; MEAN CORPUSCULAR HEMOGLOBIN 32.3 pg (27.0-31.0); MEAN CORPUSCULAR HGB CONC 33.2 g/dL (32.0-36.0); MEAN CORPUSCULAR VOLUME 97.3 fL (80.0-94.0); MONOCYTES # (AUTO) 0.5 10^3/uL (0.0-1.0); MONOCYTES % (AUTO) 8.4 %; NEUTROPHILS # (AUTO) 3.1 10^3/uL (1.5-6.6); NEUTROPHILS % (AUTO) 54.3 %; PLT - PLATELET COUNT 207 10^3/uL (130-450); RED BLOOD COUNT 4.83 10^6/uL (4.70-6.10); RED CELL DISTRIBUTION WIDTH 14.3 % (12.0-15.0); WHITE BLOOD COUNT 5.6 x10^3/uL (4.8-10.8)
[2021-01-17 13:07] LABS: ESTIMATED AVERAGE GLUCOSE 103 mg/dL (70-100); HEMOGLOBIN A1c% 5.2 % (4.27-6.07)
[2021-01-17 13:10] LABS: ALBUMIN/GLOBULIN RATIO 1.6 (1.0-2.2); ALKALINE PHOSPHATASE 59 IU/L (42-121); ALT ALANINE AMINOTRANSFERASE 22 IU/L (10-60); AST ASPARTATE AMINOTRANSFERASE 30 IU/L (10-42); BILIRUBIN,TOTAL 1.3 mg/dL (0.2-1.0); BUN - BLOOD UREA NITROGEN 20 mg/dL (6-20); CALCIUM 9.3 mg/dL (8.5-10.3); CARBON DIOXIDE - CO2 26 mmol/L (21-32); CHLORIDE 104 mmol/L (101-111); CHOL/HDL RATIO 3.8 (<5.0); CHOLESTEROL 161 mg/dL; CREATININE 0.8 mg/dL (0.6-1.2); GFR - MDRD 93 (>89); GLUCOSE 100 mg/dL (70-100); HDL CHOLESTEROL 42 mg/dL; LDL CHOLESTEROL,CALCULATED 86 mg/dL; POTASSIUM 4.4 mmol/L (3.5-5.0); SODIUM 138 mmol/L (135-145); TOTAL PROTEIN 6.5 g/dL (6.7-8.2); TRIGLYCERIDES 163 mg/dL; VLDL CHOLESTEROL 33 mg/dL
[2021-01-17 13:17] LABS: THYROID STIMULATING HORMONE 1.22 uIU/mL (0.34-5.60)
--- OUTSIDE RECORDS SUMMARY | 2021-01-19 03:07 | EXTERNAL MEDICAL SUMMARY RPT | Continuity of Care Document ---
: Demographics Phone Unavailable Preferred Language Ugandan Marital Status Unknown Yazdanism Affiliation Unknown Race Unknown Ethnic Group Unknown Author Organization [place] Address [address] [phone] Phone Care Team Providers Name Role Phone Otoniel Duarte Unavailable Unavailable Problems date description facility [id number] Contact with and (suspected) exposure t o [address] [id number] Other intervertebral disc displacement, lumbar region [facility] Procedures date description facility [id number] Diagnosis [facility] date description facility [id number] [facility] date description facility [id number] [facility] date description facility [id number] [facility] date description facility [id number] [facility] Vital Signs date measurement value source 20201124 BMI 39.2 kg/m2 20201124 BP_diastolic 83 mm[Hg] 17158723 BP_systolic 150 mm[Hg] 27851750 heart_rate 62 /min 20201124 height_metric 182.88 cm 20201124 height_standard 72 in [id number] temperature_metric 37 C [id number] temperature_standard 98.6 F [id number] weight_metric 131.25 kg 20201124 weight_standard 289.36 lb date measurement value source 20201220 heart_rate 67 /min [id number] temperature_metric 36.39 C 01194589 temperature_standard 97.5 F date measurement value source 20201221 BP_diastolic 57 mm[Hg] 28145810 BP_systolic 113 mm[Hg] 53092896 heart_rate 58 /min 02582195 respiration_rate 18 /min 20201221 temperature_metric 36.83 C 21616694 temperature_standard 98.3 F Social History date description facility [id number]
== END 2021-01-17 09:27 | disposition home or self-care (01) ==
LOC: LAB.N 09:26
PROVIDERS: ATTEND Family Medicine
DX: I10 Essential (primary) hypertension (principal); E78.5 Hyperlipidemia, unspecified; R73.03 Prediabetes; Z95.2 Presence of prosthetic heart valve; Z79.01 Long term (current) use of anticoagulants
CPT/HCPCS: 36415; 80053; 80061; 83036; 83721; 84443; 85025

== ENCOUNTER 2021-02-14 08:00 | Outpatient (CLI) | payer MEDICARE, OTHER | END 2021-02-14 23:59 | disposition home or self-care (01) | LOC: LAB.N 08:00 | PROVIDERS: ATTEND Family Medicine | DX: Z79.01 Long term (current) use of anticoagulants (principal); Z95.2 Presence of prosthetic heart valve ==

== ENCOUNTER 2021-03-23 08:00 | Outpatient (CLI) | payer MEDICARE, OTHER | END 2021-03-23 23:59 | disposition home or self-care (01) | LOC: LAB.N 08:00 | PROVIDERS: ATTEND Family Medicine | DX: Z95.2 Presence of prosthetic heart valve (principal); Z79.01 Long term (current) use of anticoagulants ==

== ENCOUNTER 2021-04-14 16:12 | Outpatient (CLI) | payer MEDICARE, OTHER ==
--- NOTE | 2021-04-14 17:42 | XRAY Report ---
PROCEDURE: Hip w/Pelvis 2-3V LT INDICATIONS: LEFT HIP PAIN AFTER FALL TECHNIQUE: AP pelvis with lateral view(s) of the left hip(s). COMPARISON: None. FINDINGS: Bones: No fractures or dislocations. Pelvic ring appears intact. No suspicious bony lesions. Rowdy us hypertrophy noted in the left hip compatible with osteoarthritis. Soft tissues: The visualized bowel gas pattern is normal. No suspicious soft tissue calcifications. IMPRESSION: 1. Mild left hip osteoarthritis. 2. No fracture. No acute osseous lesion. If there persistent symptoms or continued clinical concern f or pathology, then repeat plain film radiographs (7-10 days) or advanced imaging (CT, MR, bone scan) should be considered for further evaluation. Reviewed by: Martha Guzman MD, PhD on 04/14/2021 5:40 PM PDT Approved by: Martha Guzman MD, PhD on 04/14/2021 5:40 PM PDT Station ID: [id number]
== END 2021-04-14 23:59 | disposition home or self-care (01) ==
LOC: DI.N 16:12
PROVIDERS: ATTEND Physician Assistant Medical
DX: S76.322A Laceration of muscle, fascia and tendon of the posterior muscle group at thigh level, left thigh, initial encounter (principal); M16.12 Unilateral primary osteoarthritis, left hip; Z79.01 Long term (current) use of anticoagulants
CPT/HCPCS: 85610

== ENCOUNTER 2021-04-16 11:09 | Outpatient (CLI) | payer MEDICARE, OTHER | END 2021-04-16 11:10 | disposition critical access hospital (66) | LOC: EMS 11:09 | DX: M79.606 Pain in leg, unspecified (principal) | CPT/HCPCS: A0425; A0429 ==

== ENCOUNTER 2021-04-16 11:43 | Emergency (ER) | payer MEDICARE, OTHER ==
[2021-04-16] MEDS ORDERED: HYDROcod/ACETAM 5/325 MG TABLET PO STA (12:19)
--- NOTE | 2021-04-16 12:22 | ED Physician Documentation ---
History of Present Illness - Stated complaint Stated Complaint: LFT LEG PX - Chief complaint Chief Complaint: Ext Problem - Additonal information Additional information: 80-year-old male presents the emergency department for evaluation of left hip pain. He reports a fall nearly 6 days ago. He reports that in the fall he twisted and landed awkwardly on his left hip. He was able to get up but since then has found ambulating exceedingly difficult. He has a history of an aortic valve replacement and is on Coumadin after the fall he had extensive bruising of the left medial thigh left lower calf and posterior thigh. Intermittently over the week he has been able to ambulate with a walker but has not been able to ascend the stairs at his house thus he has been sleeping on a recliner. He did go to a walk-in clinic 4 days ago and was told that he had a muscle tear as the x-ray was negative symptoms have not improve thus he comes to the ER today. Tylenol for pain not effective Review of Systems Constitutional: denies: Fever, Chills Eyes: reports: Reviewed and negative Ears: reports: Reviewed and negative Nose: reports: Reviewed and negative Throat: reports: Reviewed and negative Cardiac: reports: Reviewed and negative Respiratory: reports: Reviewed and negative GI: reports: Reviewed and negative : reports: Reviewed and negative Skin: reports: Reviewed and negative Musculoskeletal: reports: Extremity pain, Joint pain PD PAST MEDICAL HISTORY - Past Medical History Past Medical History: Yes Cardiovascular: Hypertension, High cholesterol, Valve disorder Respiratory: None, Sleep apnea, CPAP use Endocrine/Autoimmune: None GI: GERD : None HEENT: None Psych: Depression, Anxiety Musculoskeletal: None Derm: None - Past Surgical History Past Surgical History: Yes General: Colonoscopy Ortho: Other Cardiovascular: Valve replacement HEENT: Tonsil/Adenoidectomy Derm: Skin cancer surgery - Present Medications Home Medications: Ambulatory Orders Medication Instructions Recorded Confirmed Ascorbic Acid [Vitamin C] 1,000 mg PO DAILY 07/23/13 04/16/21 Cholecalciferol (Vitamin D3) 1,000 unit PO DAILY 07/23/13 04/16/21 [Vitamin D] Lisinopril [Zestril] 40 mg PO DAILY 07/23/13 04/16/21 Omeprazole [PriLOSEC] 20 mg PO DAILY 07/23/13 04/16/21 Tolterodine [Detrol LA] 4 mg PO DAILY 07/23/13 04/16/21 Warfarin [Coumadin] 5 mg PO DAILY 07/23/13 04/16/21 Sertraline [Zoloft] 1 tab PO DAILY 06/18/17 04/16/21 Atorvastatin [Lipitor] 20 mg PO DAILY 05/24/19 04/16/21 Cetirizine [ZyrTEC] 10 mg PO ONCE 05/24/19 04/16/21 HYDROcod/ACETAM 5/325 [[place] 5/325] 1 - 2 tablet PO Q6H PRN #14 tablet 04/16/21 - Allergies Allergies/Adverse Reactions: Allergies Allergy/AdvReac Type Severity Reaction Status Date / Time oxycodone [Oxycodone] Allergy Severe Itching Verified 04/16/21 11:55 famotidine [From Pepcid] AdvReac Intermediate unknown Verified 04/16/21 11:55 - Social History Does the pt smoke?: No Smoking Status: Never smoker Does the pt drink ETOH?: No Does the pt have substance abuse?: No - Immunizations Immunizations are current?: Yes - POLST Patient has POLST: No PD ED PE EXPANDED - General General: Alert, No acute distress, Other (obese) - Cardiac Cardiac: Regular Rate, Murmur Present, Radial strong equal, Pedal strong equal, Cap refill < 2 sec - Respiratory Respiratory: Clear to ausultation ai. No: Distress, Labored - Abdomen Abdomen: Normal Bowel sounds. No: Tender to palpation - Extremities Extremities: Left hip (Extensive bruising of the medial thigh and posterior hip. No shortening or malrotation. Significant tenderness with external rotation though internal rotation is well-tolerated. Distal to plus DP pulse. No pain at ankle or knee with exam.) Results - Vitals Vitals: Vital Signs - 24 hr 04/16/21 04/16/21 11:53 13:49 Temperature 36.2 C L Heart Rate 87 88 Respiratory 20 18 Rate Blood Pressure 147/64 H 119/61 O2 Saturation 97 98 Oxygen O2 Source Room air - Rads (name of study) CT left hip Radiology: Final report received (No evidence of acute fracture or dislocation involving the pelvis and right or left hip.) PD MEDICAL DECISION MAKING - ED course Complexity details: reviewed results, re-evaluated patient ED course: 80-year-old male presents to the emergency department with hip pain that has been persistent after a fall about 1 week ago. Because he is on Coumadin he has extensive bruising on the medial thigh and posterior thigh. Over the last week he has intermittently been able to ambulate on the hip but it got acutely worse today. An x-ray completed at urgent care a few days ago did not show any obvious fracture. CT was completed today without contrast of the hip and femur and there were no obvious fractures seen. The patient has been taking only Tylenol at home for pain therefore here in the emergency department he was given 2 Vicodin and once the CT results were completed we did road test him with a walker. He was able to ambulate at least 20 feet with a walker. During this he did not complain of pain in the hip. He did report pain mostly in the lower posterior thigh. Given his exam I am mostly concerned that he likely has subcutaneous or muscle ligamentous injury. Patient was Saad wrapped and he did feel that improved his stability with walk. He will be discharged home to follow-up with his primary care provider. If symptoms or not markedly better, He would benefit from an MRI of this extremity and or physical therapy. Emergent return precautions were discussed. I am prescribing a short course of short-acting opioid pain medication for this patient. I have reviewed the patients AMBULANCE ASSISTANT and no concerning findings were noted. I have discussed that the opioids are for short term therapy only, and will not be refilled from the ED. Departure - Departure Disposition: 01 Home, Self Care Clinical Impression: Pain in left thigh Condition: Stable Record reviewed to determine appropriate education?: Yes Follow-Up: Otoniel Duarte DO [Primary Care Provider] - Prescriptions: HYDROcod/ACETAM 5/325 [[place] 5/325] 1 - 2 tablet PO Q6H PRN #14 tablet PRN Reason: Pain Comments: You were seen in the ER today for left hip and thigh pain after a fall last week. Initially the x-rays at urgent care did not show a fracture but because you continue to have persistent pain we did do a CT of this extremity that did not show any broken bones. As we discussed I suspect that you have severe muscle strain or even ligament injury. I would like you to use the Saad wrap when out of bed. This will help support your muscle and your ligaments. Please discuss this ED visit with your primary care provider. If your symptoms are not markedly better within the week you would benefit from an MRI of the thigh and knee as well as referral to physical therapy. I am prescribing a short course of narcotic pain medication for you. These are potentially dangerous and addictive medications that should be used carefully. These medications may constipate you. Take an zjgo-rre-ggeozch stool softener (docusate) twice daily with plenty of water while taking these medications. If you go 24 hours without a bowel movement, take nfsj-cza-chqthsa miralax, per package instructions. Do not drink or drive while taking these medications. If you received narcotic or sedating medications while in the emergency department, do not drive for 24 hours. Store this medication in a safe, secure place and out of reach of children. It is a violation of federal law to give or sell this medication to another person or to use in a manner other than prescribed. The ED will not refill narcotic prescriptions, including prescriptions lost or stolen. To dispose of unwanted medications: 1. [facility] at [address] in [place] has a medication drop box. They accept prescription medications (in pill form) Sunday through Sunday 9:00 a.m. to 5:00 p.m. 2. The [facility] [employer] accepts prescription medications (in pill form only) for disposal year round. Call for more information. 3. Contact the [facility] for the next [facility] sponsored prescription drug collection event. , [phone], or [phone]; Note that many narcotic pain relievers also contain Tylenol/acetaminophen. Please ensure that your total dose of acetaminophen from all sources does not exceed 3 g (3000 mg) per day.
--- NOTE | 2021-04-16 13:27 | CT Report ---
PROCEDURE: PELVIS WO INDICATIONS: right hip pain after fall; ? hip or femur fx TECHNIQUE: Noncontrast 3 mm axial sections acquired through the bony pelvis, with coronal and sagittal reformatt ing. For radiation dose reduction, the following was used: automated exposure control, adjustment of mA and/or kV according to patient size. COMPARISON: None. FINDINGS: Image quality: Excellent. Bones: No acute fracture or dislocation involving the pelvis and right hip. There is lower lumbar de generative change. There is prominent bilateral facet arthropathy at L3 L4-L5 S1. There is a right po sterior lateral disc protrusion at L5-S1 which may impinge on the right S1 nerve root in the right la teral recess. There is canal stenosis at L4-L5 and L5-S1. Soft tissues: Atherosclerotic calcifications. No pelvic masses. Enlarged prostate. IMPRESSION: 1. No evidence of acute fracture or dislocation involving the pelvis and right hip. 2. Lower lumbar degenerative change with canal stenosis at L4-L5 and L5-S1. 3. A right posterior lateral disc protrusion at L5-S1 may impinge on the right S1 nerve root in the r ight lateral recess. Reviewed by: Surinder Draper MD on 04/16/2021 12:25 PM YOSELIN Approved by: Surinder Draper MD on 04/16/2021 12:25 PM YOSELIN Station ID: [id number]
[2021-04-16 13:49] VITALS: BP 119/61
== END 2021-04-16 14:37 | disposition home or self-care (01) ==
LOC: EDUNIT# → ED 11:43
DX: M79.652 Pain in left thigh (principal)
CPT/HCPCS: 72192; 99284; A9270

== ENCOUNTER 2021-04-18 19:07 | Emergency (ER) | payer MEDICARE, OTHER ==
[2021-04-18 19:22] VITALS: BP 143/77
--- NOTE | 2021-04-18 20:56 | ED Physician Documentation ---
PD HPI LOWER EXT INJURY - Stated complaint Stated Complaint: LT LEG PX - Chief complaint Chief Complaint: Ext Problem - History obtained from History obtained from: Patient - History of Present Illness PD HPI LOW EXT INJURY LOCATION: Left, Upper leg, Lower leg Type of injury: Fall Where injury occurred: Other (restaurant) Timing - onset: How many days ago (8) Timing - details: Abrupt onset Pain level max: 10 (with movement/ambulation/weight-bearing) Pain level now: 8 Improved by: Rest Worsened by: Moving, Palpating Associated symptoms: Swelling Contributing factors: Anticoagulated Recently seen: Emergency Dept - Additional information Additional information: patient had trip/fall 8 days ago in a restaurant, landing on left side with sudden onset left hip pain. he was evaluated at an urgent care center 5 days ago; he says left hip xrays were performed and were unremarkable, and that his INR was upper 3s. He was T+R from this ED 2 days ago, had CT pelvis which did not demonstrate acute abnormalities and he was discharged with rx vicodin. He says he has had adequate pain relief with the vicodin but has run out of this medication. He is also concerned that the swelling was just proximal LLE but now is the entire LLE down to the toes. Review of Systems Constitutional: denies: Fever Cardiac: denies: Chest pain / pressure Respiratory: denies: Dyspnea Musculoskeletal: reports: Extremity pain, Extremity swelling, Pain with weight bearing. denies: Neck pain, Back pain Neurologic: denies: Focal weakness, Numbness PD PAST MEDICAL HISTORY - Past Medical History Cardiovascular: Hypertension, High cholesterol, Valve disorder Respiratory: None, Sleep apnea, CPAP use Endocrine/Autoimmune: None GI: GERD : None HEENT: None Psych: Depression, Anxiety Musculoskeletal: None Derm: None - Past Surgical History Past Surgical History: Yes General: Colonoscopy Ortho: Other Cardiovascular: Valve replacement HEENT: Tonsil/Adenoidectomy Derm: Skin cancer surgery - Present Medications Home Medications: Ambulatory Orders Medication Instructions Recorded Confirmed Ascorbic Acid [Vitamin C] 1,000 mg PO DAILY 07/23/13 04/16/21 Cholecalciferol (Vitamin D3) 1,000 unit PO DAILY 07/23/13 04/16/21 [Vitamin D] Lisinopril [Zestril] 40 mg PO DAILY 07/23/13 04/16/21 Omeprazole [PriLOSEC] 20 mg PO DAILY 07/23/13 04/16/21 Tolterodine [Detrol LA] 4 mg PO DAILY 07/23/13 04/16/21 Warfarin [Coumadin] 5 mg PO DAILY 07/23/13 04/16/21 Sertraline [Zoloft] 1 tab PO DAILY 06/18/17 04/16/21 Atorvastatin [Lipitor] 20 mg PO DAILY 05/24/19 04/16/21 Cetirizine [ZyrTEC] 10 mg PO ONCE 05/24/19 04/16/21 HYDROcod/ACETAM 5/325 [[place] 5/325] 1 - 2 tablet PO Q6H PRN #14 tablet 04/16/21 HYDROcod/ACETAM 5/325 [[place] 5/325] 1 - 2 tablet PO Q6H PRN #14 tablet 04/19/21 - Allergies Allergies/Adverse Reactions: Allergies Allergy/AdvReac Type Severity Reaction Status Date / Time oxycodone [Oxycodone] Allergy Severe Itching Verified 04/18/21 19:16 famotidine [From Pepcid] AdvReac Intermediate unknown Verified 04/18/21 19:16 - Social History Does the pt smoke?: No Smoking Status: Never smoker Does the pt drink ETOH?: No Does the pt have substance abuse?: No - Immunizations Immunizations are current?: Yes - POLST Patient has POLST: No PD ED PE NORMAL - Vitals Vital signs reviewed: Yes - General General: Alert and oriented X 3, No acute distress (NAD at rest; needs assistance to transfer from wheelchair to bed including use of weight belt, and he is in obvious painful discomfort when transferred (process includes brief partial-weight bearing on LLE)), Well developed/nourished - Cardiac Cardiac: No murmur - Respiratory Respiratory: No respiratory distress, Clear bilaterally PD ED PE EXPANDED - Cardiac Cardiac: Regular Rhythm, Other (regular click c/w mechanical valve) - Extremities Extremities: Limited ROM (limited left hip flexion due to pain), Swelling (circumferential LLE edema, entire LLE from hip to toes. echymosis upper leg, limited to medial, posterior, and lateral aspects), Pedal edema bilateral (3+ LLE, 2+ RLE), Pedal Pulses Present Results - Vitals Vitals: Oxygen O2 Source Room air - Labs Labs: Laboratory Tests 04/19/21 01:05 PT 49.9 H INR 5.0 H* - Rads (name of study) LLE US Radiology: Prelim report reviewed, See rad report PD MEDICAL DECISION MAKING - ED course Complexity details: reviewed old records, reviewed results, re-evaluated patient, considered differential, d/w patient ED course: No DVT on US. Will provide new rx for vicodin, instructed to f/u with his PMD Departure - Departure Disposition: Home, Self Care Clinical Impression: Contusion of left leg Condition: Good Instructions: ED Contusion Lower Ext, ED Leg Swelling Unilateral Follow-Up: Otoniel Duarte DO [Primary Care Provider] - Prescriptions: HYDROcod/ACETAM 5/325 [[place] 5/325] 1 - 2 tablet PO Q6H PRN #14 tablet PRN Reason: Pain Discharge Date/Time: 04/19/21 01:52
[2021-04-18] MEDS ORDERED: HYDROcod/ACETAM 5/325 MG TABLET PO STA (21:08)
[2021-04-19 01:21] LABS: PT - PROTHROMBIN TIME 49.9 secs (9.9-12.6)
[2021-04-19] MEDS ORDERED: HYDROcod/ACETAM 5/325 MG TABLET PO STA (01:39)
--- NOTE | 2021-04-19 07:48 | Ultrasound Report ---
PROCEDURE: Duplex Ext Veins Left INDICATIONS: Left lower extremity pain and swelling TECHNIQUE: Real-time imaging, as well as color and pulse Doppler interrogation, were performed of the lower extr emity deep veins from the inguinal ligament to the popliteal fossa. COMPARISON: None. FINDINGS: The deep veins are normally compressible, and free of intraluminal thrombus. Color and pu lse Doppler demonstrate normal phasic intraluminal flow. There is normal augmentation response to di stal compression maneuver. IMPRESSION: No sonographic evidence of DVT. Reviewed by: Abdias Chan MD on 04/19/2021 7:47 AM PDT Approved by: Abdias Chan MD on 04/19/2021 7:47 AM PDT Station ID: [id number]
== END 2021-04-19 01:52 | disposition home or self-care (01) ==
LOC: ED 19:07
DX: S70.12XA Contusion of left thigh, initial encounter (principal); S80.12XA Contusion of left lower leg, initial encounter; M25.552 Pain in left hip; W01.0XXA Fall on same level from slipping, tripping and stumbling without subsequent striking against object, initial encounter; Y92.511 Restaurant or cafe as the place of occurrence of the external cause; R60.0 Localized edema; I10 Essential (primary) hypertension; Z95.2 Presence of prosthetic heart valve; Z79.01 Long term (current) use of anticoagulants
CPT/HCPCS: 36415; 85610; 93971; 99283; 99284; A9270

== ENCOUNTER 2021-04-21 10:49 | Outpatient (CLI) | payer MEDICARE, OTHER | END 2021-04-21 10:50 | disposition critical access hospital (66) | LOC: EMS 10:49 | DX: R53.1 Weakness (principal) | CPT/HCPCS: A0425; A0429 ==

== ENCOUNTER 2021-04-21 11:20 | Emergency (ER) | payer MEDICARE, OTHER ==
[2021-04-21] MEDS ORDERED: SODIUM CHLORIDE 0.9% 1,000 ML IV STA (13:15)
[2021-04-21 13:51] LABS: BILIRUBIN,URINE NEGATIVE (NEGATIVE); GLUCOSE, URINE (UA) NEGATIVE (NEGATIVE); KETONES,URINE (UA) NEGATIVE (NEGATIVE); LEUKOCYTE ESTERASE, URINE NEGATIVE (NEGATIVE); NITRITE,URINE NEGATIVE (NEGATIVE); OCCULT BLOOD,URINE NEGATIVE (NEGATIVE); PROTEIN,URINE NEGATIVE (NEGATIVE); UROBILINOGEN,URINE 0.2 (NORMAL) E.U./dL (NORMAL)
[2021-04-21 14:03] LABS: CLARITY,URINE CLEAR (CLEAR)
[2021-04-21 15:26] LABS: BASOPHILS # (AUTO) 0.1 10^3/uL (0.0-0.1); BASOPHILS % (AUTO) 0.7 %; EOSINOPHILS # (AUTO) 0.2 10^3/uL (0.0-0.7); EOSINOPHILS % (AUTO) 2.6 %; HCT - HEMATOCRIT 39.2 % (42.0-52.0); HGB - HEMOGLOBIN 13.1 g/dL (14.0-18.0); LYMPHOCYTES % (AUTO) 21.8 %; MEAN CORPUSCULAR HEMOGLOBIN 32.4 pg (27.0-31.0); MEAN CORPUSCULAR HGB CONC 33.4 g/dL (32.0-36.0); MEAN PLATELET VOLUME 9.4 fL (7.4-11.4); MONOCYTES # (AUTO) 0.7 10^3/uL (0.0-1.0); MONOCYTES % (AUTO) 7.5 %; NEUTROPHILS % (AUTO) 66.7 %; PLT - PLATELET COUNT 342 10^3/uL (130-450); RED BLOOD COUNT 4.04 10^6/uL (4.70-6.10); RED CELL DISTRIBUTION WIDTH 13.3 % (12.0-15.0)
[2021-04-21 15:48] LABS: ALBUMIN/GLOBULIN RATIO 1.1 (1.0-2.2); BILIRUBIN,TOTAL 2.8 mg/dL (0.2-1.0); CALCIUM 9.3 mg/dL (8.5-10.3); CREATININE 0.6 mg/dL (0.6-1.2); POTASSIUM 4.1 mmol/L (3.5-5.0); TOTAL PROTEIN 7.5 g/dL (6.7-8.2)
[2021-04-21 15:52] LABS: INR 2.4 (0.8-1.2); PT - PROTHROMBIN TIME 24.9 secs (9.9-12.6)
--- NOTE | 2021-04-21 16:12 | ED Physician Documentation ---
History of Present Illness - Stated complaint Stated Complaint: WEAKNESS - Chief complaint Chief Complaint: General - History obtained from History obtained from: Patient, Family - History of Present Illness Timing: How many days ago (11) - Additonal information Additional information: 80-year-old male has had a fall in his home 11 days ago injuring his left hip. He was having difficult time ambulating on this and eventually made his way into the emergency department. He has a lot of swelling associated with this and discoloration from subcutaneous bleeding as he is on Coumadin. He denies any injury to his head. He was evaluated in the urgent care and an x-ray of his hip was obtained without evidence of fracture. He subsequently followed up here in the emergency department had a CT scan done of the hip was given some Vicodin and able to ambulate with a walker. He subsequently returned to the emergency department when he ran out of pain medication at that time he had swelling of the left leg and a duplex ultrasound was obtained without evidence of DVT. He is coming to the emergency department today with generalized weakness not able to get up and move around in his home the way he like to. His primary care doctor is told him that he may need to go into a nursing home facility for rehabilitation and he feels that this is likely necessary. Review of Systems Constitutional: denies: Fever Eyes: denies: Decreased vision Ears: denies: Ear pain Nose: denies: Congestion Throat: denies: Sore throat Cardiac: denies: Chest pain / pressure Respiratory: denies: Dyspnea, Cough GI: denies: Abdominal Pain, Nausea, Vomiting : denies: Dysuria, Frequency PD PAST MEDICAL HISTORY - Past Medical History Past Medical History: Yes Cardiovascular: Hypertension, High cholesterol, Valve disorder Respiratory: None, Sleep apnea, CPAP use Endocrine/Autoimmune: None GI: GERD : None HEENT: None Psych: Depression, Anxiety Musculoskeletal: None Derm: None - Past Surgical History Past Surgical History: Yes General: Colonoscopy Ortho: Other Cardiovascular: Valve replacement HEENT: Tonsil/Adenoidectomy Derm: Skin cancer surgery - Present Medications Home Medications: Ambulatory Orders Medication Instructions Recorded Confirmed Ascorbic Acid [Vitamin C] 1,000 mg PO DAILY 07/23/13 04/16/21 Cholecalciferol (Vitamin D3) 1,000 unit PO DAILY 07/23/13 04/16/21 [Vitamin D] Lisinopril [Zestril] 40 mg PO DAILY 07/23/13 04/16/21 Omeprazole [PriLOSEC] 20 mg PO DAILY 07/23/13 04/16/21 Tolterodine [Detrol LA] 4 mg PO DAILY 07/23/13 04/16/21 Warfarin [Coumadin] 5 mg PO DAILY 07/23/13 04/16/21 Sertraline [Zoloft] 1 tab PO DAILY 06/18/17 04/16/21 Atorvastatin [Lipitor] 20 mg PO DAILY 05/24/19 04/16/21 Cetirizine [ZyrTEC] 10 mg PO ONCE 05/24/19 04/16/21 HYDROcod/ACETAM 5/325 [[place] 5/325] 1 - 2 tablet PO Q6H PRN #14 tablet 04/16/21 HYDROcod/ACETAM 5/325 [[place] 5/325] 1 - 2 tablet PO Q6H PRN #14 tablet 04/19/21 HYDROcod/ACETAM 5/325 [[place] 5/325] 1 - 2 tablet PO Q6H PRN #14 tablet 04/21/21 - Allergies Allergies/Adverse Reactions: Allergies Allergy/AdvReac Type Severity Reaction Status Date / Time oxycodone [Oxycodone] Allergy Severe Itching Verified 04/21/21 11:30 famotidine [From Pepcid] AdvReac Intermediate unknown Verified 04/21/21 11:30 - Social History Does the pt smoke?: No Smoking Status: Never smoker Does the pt drink ETOH?: No Does the pt have substance abuse?: No - Immunizations Immunizations are current?: Yes - POLST Patient has POLST: No PD ED PE NORMAL - Vitals Vital signs reviewed: Yes (Normal with wide pulse pressure) - General General: Alert and oriented X 3, No acute distress, Well developed/nourished - HEENT HEENT: Atraumatic, PERRL, EOMI - Neck Neck: Supple, no meningeal sign, No bony TTP - Cardiac Cardiac: RRR, No murmur - Respiratory Respiratory: No respiratory distress, Clear bilaterally - Abdomen Abdomen: Soft, Non tender - Back Back: No CVA TTP, No spinal TTP - Derm Derm: Normal color, Warm and dry, No rash - Extremities Extremities: No deformity, Other (There is edema to the entire left leg with ecchymosis present medially posteriorly and laterally. This appears to be dependent edema. There is less edema on the right side.) - Neuro Neuro: Alert and oriented X 3, foil cutter 2-12 intact, No motor deficit, No sensory deficit, Normal speech Eye Opening: Spontaneous Motor: Obeys Commands Verbal: Oriented GCS Score: 15 - Psych Psych: Normal mood, Normal affect Results - Vitals Vitals: Vital Signs - 24 hr 04/21/21 04/21/21 04/21/21 11:25 12:29 14:00 Temperature 36.7 C 36.7 C Heart Rate 79 79 77 Respiratory 16 16 16 Rate Blood Pressure 126/58 L 126/58 L 132/73 H O2 Saturation 98 98 100 04/21/21 04/21/21 04/21/21 15:46 15:48 17:00 Temperature 37.0 C 37.4 C Heart Rate 77 74 Respiratory 16 16 Rate Blood Pressure 141/67 H 131/76 H O2 Saturation 100 94 Oxygen O2 Source Room air - Labs Labs: Laboratory Tests 04/21/21 04/21/21 04/21/21 13:42 14:49 15:21 WBC 9.0 RBC 4.04 L Hgb 13.1 L Hct 39.2 L MCV 97.0 H MCH 32.4 H MCHC 33.4 RDW 13.3 Plt Count 342 MPV 9.4 Neut # (Auto) 6.0 Lymph # (Auto) 2.0 [place] # (Auto) 0.7 Eos # (Auto) 0.2 Baso # (Auto) 0.1 Absolute Nucleated RBC 0.00 Nucleated RBC % 0.0 PT INR (Fingerstick) 2.5 H INR Sodium Potassium Chloride Carbon Dioxide Anion Gap BUN Creatinine Estimated GFR (MDRD) Glucose Calcium Total Bilirubin AST ALT Alkaline Phosphatase Total Protein Albumin Globulin Albumin/Globulin Ratio Lipase Urine Color YELLOW Urine Clarity CLEAR Urine pH 6.0 Ur Specific [place] 1.010 Urine Protein NEGATIVE Urine Glucose (UA) NEGATIVE Urine Ketones NEGATIVE Urine Occult Blood NEGATIVE Urine Nitrite NEGATIVE Urine Bilirubin NEGATIVE Urine Urobilinogen 0.2 (NORMAL) Ur Leukocyte Esterase NEGATIVE Ur Microscopic Review NOT INDICATED Urine Culture Comments NOT INDICATED 04/21/21 04/21/21 15:21 15:21 WBC RBC Hgb Hct MCV MCH MCHC RDW Plt Count MPV Neut # (Auto) Lymph # (Auto) [place] # (Auto) Eos # (Auto) Baso # (Auto) Absolute Nucleated RBC Nucleated RBC % PT 24.9 H INR (Fingerstick) INR 2.4 H Sodium 134 L Potassium 4.1 Chloride 96 L Carbon Dioxide 28 Anion Gap 10.0 BUN 17 Creatinine 0.6 Estimated GFR (MDRD) 130 Glucose 91 Calcium 9.3 Total Bilirubin 2.8 H AST 31 ALT 24 Alkaline Phosphatase 57 Total Protein 7.5 Albumin 4.0 Globulin 3.5 Albumin/Globulin Ratio 1.1 Lipase 25 Urine Color Urine Clarity Urine pH Ur Specific [place] Urine Protein Urine Glucose (UA) Urine Ketones Urine Occult Blood Urine Nitrite Urine Bilirubin Urine Urobilinogen Ur Leukocyte Esterase Ur Microscopic Review Urine Culture Comments Procedures - IVC sono (time) 1240 Bedside IVC sono: IVC measures (cm) (1.2), Dehydration (est 1 liter deficit) PD MEDICAL DECISION MAKING - ED course Complexity details: reviewed results, re-evaluated patient, considered differential, d/w patient, d/w family ED course: 80-year-old male with a recent fall injury to his left hip he is on Coumadin he has a lot of bruising and ecchymosis to the lower extremity no evidence of a fracture he has had duplex exam to rule out DVT and he continues to be weak and having difficulty getting around in his home. He has a bedroom on the second floor and he has had to sleep in his recliner since his injury and he has developed dependent edema. He has come to the emergency department today with the expectation that he will need placement for more help. Here in the emergency department he is found to be dehydrated on interrogation the inferior vena cava and we did order IV fluid but they were unable to establish an IV we were able to get blood the blood work looks stable and unremarkable. He is able to orally hydrate We have asked social work to look into assisted living for the patient. Departure - Departure Disposition: 01 Home, Self Care Clinical Impression: Weakness, Dehydration Contusion of left leg Qualifiers: Encounter type: initial encounter Qualified Code(s): S80.12XA - Contusion of left lower leg, initial encounter Condition: Stable Instructions: ED Contusion Lower Ext, ED Dehydration Follow-Up: Otoniel Duarte DO [Primary Care Provider] - Prescriptions: HYDROcod/ACETAM 5/325 [[place] 5/325] 1 - 2 tablet PO Q6H PRN #14 tablet PRN Reason: Pain Discharge Date/Time: 04/21/21 17:29
[2021-04-21 17:10] VITALS: BP 131/76
== END 2021-04-21 17:29 | disposition home or self-care (01) ==
LOC: EDUNIT# → ED 11:20
DX: E86.0 Dehydration (principal); R53.1 Weakness; R60.0 Localized edema; S80.12XA Contusion of left lower leg, initial encounter; W19.XXXA Unspecified fall, initial encounter; Y92.009 Unspecified place in unspecified non-institutional (private) residence as the place of occurrence of the external cause; I10 Essential (primary) hypertension; Z95.2 Presence of prosthetic heart valve; Z79.01 Long term (current) use of anticoagulants
CPT/HCPCS: 36415; 80053; 81001; 81003; 83690; 85025; 85610; 87086; 99283; 99284

== ENCOUNTER 2021-06-01 08:00 | Outpatient (CLI) | payer MEDICARE, OTHER | END 2021-06-01 23:59 | disposition home or self-care (01) | LOC: LAB.WCP 08:00 | PROVIDERS: ATTEND Family Medicine | DX: Z79.01 Long term (current) use of anticoagulants (principal); Z95.2 Presence of prosthetic heart valve ==

== ENCOUNTER 2021-08-16 09:18 | Outpatient (CLI) | payer MEDICARE, OTHER | END 2021-08-16 09:19 | disposition home or self-care (01) | LOC: DI 09:18 | PROVIDERS: ATTEND Internal Medicine Cardiovascular Disease | DX: Q23.0 Congenital stenosis of aortic valve (principal); I25.10 Atherosclerotic heart disease of native coronary artery without angina pectoris; Z95.2 Presence of prosthetic heart valve; I11.9 Hypertensive heart disease without heart failure | CPT/HCPCS: 93306 ==

== ENCOUNTER 2021-08-19 14:06 | Outpatient (CLI) | payer MEDICARE, OTHER ==
[2021-08-19 15:09] VITALS: BP 129/70
--- NOTE | 2021-08-19 15:09 | SLEEP CARE CONSULTATION ---
Information from patient questionnaire entered by Karolina Davidson MA. I have reviewed and concur with the information entered by Karolina Davidson MA. This document represents the service I personally performed and the decisions made by , Mitra Lu ARNP. History of Present Illness Service Date and Time: 08/19/2021 1406 Previous diagnosis: Severe, Obstructive Sleep Apnea-Hypopnea Syndrome AHI: 42.2 (in 2017)(RDI-26.5 in 1999) Reason for follow up: annual Equipment type: BiPAP Equipment obtained from: [employer] (getting supplies as needed) Mask style: Full face Backup mask available: Yes (other mask) Last cushion change: over a month Prior sleep studies: Yes Year and Where: 2016 - [facility] HPI additional information: KATHERINE MISHRA was diagnosed to have severe, AHI 42.2, obstructive sleep apnea- hypopnea syndrome and returned today with spouse for BIPAP therapy annual follow-up. Sleep Study - Results Prior sleep studies: Yes Year and Where: 2016 - [facility] CPAP Compliance Data - Data Reviewed with Patient Average duration of nightly device use: 9 hours 6 minutes Compliance rate %: 90 Humidity settin Heated hose settin Average residual AHI: 8.0 Central apnea: 0.5 Obstructive apnea: 0.1 Hypopnea: 7.4 Average large leak: 5 hours 39 minutes Subjective Patient concerns: reports: dry mouth, nose, throat. denies: aerophagia, mask discomfort, air blowing in eyes, mask leak noise, condensation in mask/hose, nasal congestion, epistaxis, other Observed to snore while using device: No Current pressure setting perceived as: comfortable On therapy, patient: reports: sleeping better, awakening more refreshed, being more awake and alert during the day, more rested overall. denies: drowsiness while driving Initial [place] Sleepiness Scale score: 4 (in 2011) Current [place] Sleepiness Scale score: 4 Allergies and Home Medications Home medication list reviewed: Yes (no changes) Review of Systems Review of systems same as previous: No (tore muscle, rear upper thigh; March 2021) Physical Exam Vital signs obtained and entered by: Juan Davidson Blood Pressure: 129/70 (left) Cuff size: wrist Heart Rate: 67 O2 Saturation: 97 (with mask) Height: 5 ft 11 in Weight: 243 lb (without boots) Body Mass Index: 33.9 BMI Classification: Obese Impression and Plan 1. Obstructive Sleep Apnea-Hypopnea Syndrome, severe, with good treatment c ompliance and fair apnea control with mild elevation of residual AHI. He has elevated hypopneas and large leaks over 5 hours which is the probable cause. No adjustments of his pressures today. On BIPAP therapy, the patient has better sleep quality and is more rested overall. Patient has already registered their device for the recall. Patient denies any black particles seen in machine or hoses, any unusual odors coming from device. Patient has not experienced any physical symptoms such as upper airway irritation, headache, skin or eye irritation, asthma, nausea/vomiting, difficulty breathing or chest pain. If patient is not able to sleep due to waking up choking, gasping for air or other respiratory distress that they may decide to continue using it until it is either replaced or repaired. Patient voiced understanding and agreement with plan. Patient's apnea severity and rationale for treatment to reduce apnea, improve sleep quality and reduce cardiovascular and cerebrovascular events was reviewed. I also reviewed the benefit of consistent device use of BIPAP for hypertension, cardiac disease, arrhythmia and gastric reflux. Patient encouraged to lose weight to improve overall health and reduce apneas. * Continue BIPAP pressure at 10/6 cmH2O * Notify me if snoring with mask or feeling that the pressure is too much or too little * Attempt to lose weight * Call this office if any problems using BIPAP * Return for follow up in 1 year, or sooner if concerns arise Counseling Topics: Spare mask, Weight loss health impact Visit Type: In Office Time Spent with Patient (minutes): 22 Provider Statement: I spent 100% of the Face to Face Visit with the patient with greater than 50% spent counseling the patient and coordination of care.
== END 2021-08-19 14:07 | disposition home or self-care (01) ==
LOC: SC 14:06
PROVIDERS: ATTEND Nurse Practitioner Family
DX: G47.33 Obstructive sleep apnea (adult) (pediatric) (principal); E66.9 Obesity, unspecified; Z68.33 Body mass index [BMI] 33.0-33.9, adult
CPT/HCPCS: 99213; G0463; 99212

== ENCOUNTER 2021-09-19 14:49 | Outpatient (CLI) | payer MEDICARE, OTHER ==
--- NOTE | 2021-09-19 16:34 | Ultrasound Report ---
PROCEDURE: Abdomen Limited INDICATIONS: ELEVATED LIVER ENZYMES TECHNIQUE: Real-time scanning was performed of the abdominal and retroperitoneal organs, with image documentatio n. COMPARISON: None. FINDINGS: Liver: Liver is normal in size and homogeneous in echotexture. It is noted the left lobe is not wel l seen. Gallbladder: Gallbladder demonstrates multiple areas of increased echogenicity. Wall thickness is wit hin normal limits measuring 1.1 cm. Biliary ducts: Intrahepatic bile ducts are non-dilated. Extrahepatic bile duct caliber measures 4.5 mm. Normal is 6-7 mm or less in diameter, or 10 mm or less post-cholecystectomy. Kidneys: Right kidney measures 10.9 cm long. No hydronephrosis or nephrolithiasis. No solid masses . IMPRESSION: Cholelithiasis without imaging visualization of cholecystitis. Reviewed by: Rubina Beck MD on 09/19/2021 4:33 PM PST Approved by: Rubina Beck MD on 09/19/2021 4:33 PM [facility] Station ID: [id number]
== END 2021-09-19 14:50 | disposition home or self-care (01) ==
LOC: DI 14:49
PROVIDERS: ATTEND Physician Assistant
DX: K80.20 Calculus of gallbladder without cholecystitis without obstruction (principal)

== ENCOUNTER 2022-06-12 18:35 | Outpatient (CLI) | payer MEDICARE, OTHER | END 2022-06-12 18:36 | disposition short-term general hospital (02) | LOC: EMS 18:35 | DX: R07.89 Other chest pain (principal); R06.02 Shortness of breath; R53.83 Other fatigue; R53.1 Weakness; R20.2 Paresthesia of skin | CPT/HCPCS: A0425; A0427 ==

== ENCOUNTER 2022-08-23 13:07 | Outpatient (CLI) | payer MEDICARE, OTHER ==
[2022-08-23 14:14] VITALS: BP 124/70
--- NOTE | 2022-08-23 14:14 | SLEEP CARE CONSULTATION ---
Information from patient questionnaire entered by Wan Houston. I have reviewed and concur with the information entered by Wan Houston. This document represents the service I personally performed and the decisions made by me, Mitra Lu ARNP. History of Present Illness Service Date and Time: 08/23/2022 1307 Previous diagnosis: Severe, Obstructive Sleep Apnea-Hypopnea Syndrome AHI: 42.2 (in 2017)(RDI-26.5 in 1999) Reason for follow up: annual (LAST SEEN 08/2021) Equipment type: BiPAP ([employer]) Equipment obtained from: [employer] (getting supplies as needed) Mask style: Full face Mask brand: Respironics (Dreamwear) Backup mask available: Yes (old mask) Last cushion change: 2 weeks [facility]: Yes [facility] additional information: KATHERINE MISHRA was diagnosed to have severe, AHI 42.2, obstructive sleep apnea- hypopnea syndrome and returned today with spouse for BIPAP therapy annual follow-up. Sleep Study - Results Prior sleep studies: Yes [facility] Compliance Data - Data Reviewed with Patient Average duration of nightly device use: 9 HRS, 4 MIN, 17SEC Compliance rate %: 95.0 (02/22/2022-08/20/2022; 173/180 days used) Current pressure setting (cmH2O): 10/6 Average residual AHI: 4.8 Central apnea: 0.5 Obstructive apnea: 0.1 Hypopnea: 4.2 Average large leak: 3 hours 31 mins Subjective Missed days of use due to: reports: other (nasal drainage limiting use; power outage) Patient concerns: reports: nasal congestion, dry mouth, nose, throat. denies: aerophagia, mask discomfort, air blowing in eyes, mask leak noise, condensation in mask/hose Observed to snore while using device: No Current pressure setting perceived as: comfortable On therapy, patient: reports: sleeping better, awakening more refreshed, being more awake and alert during the day, more rested overall. denies: drowsiness while driving Initial [place] Sleepiness Scale score: 4 (in 2011) Current [place] Sleepiness Scale score: 4 (08/23/2022) Allergies and Home Medications Drug allergies reviewed: Yes (oxycodone, famotidine) Home medication list reviewed: Yes (no changes) Review of Systems Review of systems same as previous: Yes (no changes) Physical Exam Vital signs obtained and entered by: WAN Wallace MA Blood Pressure: 124/70 (LEFT ARM) Cuff size: long Heart Rate: 70 O2 Saturation: 96 Height: 5 ft 11 in Weight: 280 lb 12.8 oz Body Mass Index: 39.2 BMI Classification: Obese Impression and Plan 1. Obstructive Sleep Apnea-Hypopnea Syndrome, severe, with good treatment compliance and good apnea control. On BIPAP therapy, the patient has better sleep quality and is more rested overall. Patient has significant improvement of their sleep apnea and are satisfied with current BIPAP therapy. He does have some nasal congestion due to time of year. He is using a nasal spray which helps reduce it. His dry mouth is just during this time of year as well. His heated hose and humidifier are both at 5. I advised to reduce the heated hose to 4 to see if this will give more moisture. He voiced understanding. Patient's apnea severity and rationale for treatment to reduce apnea, improve sleep quality and reduce cardiovascular and cerebrovascular events was reviewed. I also reviewed the benefit of consistent device use of BIPAP for hypertension, cardiac disease, arrhythmia and gastric reflux. 2. Obesity, unspecified. Currently patients BMI is 39.2. Obesity increases the risk of apnea, BIPAP pressure requirements and overall health risks especially cardiovascular and diabetes. Thus patient is advised to lose weight. * Continue BIPAP pressure at 10/6 cmH2O * Update supplies * Notify me if snoring with mask or feeling that the pressure is too much or too little * Attempt to lose weight * Call this office if any problems using BIPAP * Return for follow up in 1 year, or sooner if concerns arise Counseling Topics: Spare mask, Weight loss health impact Visit Type: In Office Time Spent with Patient (minutes): 22 Provider Statement: I spent 100% of the Face to Face Visit with the patient with greater than 50% spent counseling the patient and coordination of care.
== END 2022-08-23 13:08 | disposition home or self-care (01) ==
LOC: SC 13:07
PROVIDERS: ATTEND Nurse Practitioner Family
DX: G47.33 Obstructive sleep apnea (adult) (pediatric) (principal); E66.9 Obesity, unspecified; Z68.39 Body mass index [BMI] 39.0-39.9, adult
CPT/HCPCS: 99213; G0463; 99212

== ENCOUNTER 2022-09-08 14:57 | Emergency (ER) | payer MEDICARE, OTHER ==
[2022-09-08 15:41] LABS: BASOPHILS # (AUTO) 0.1 10^3/uL (0.0-0.1); BASOPHILS % (AUTO) 0.9 %; EOSINOPHILS # (AUTO) 0.4 10^3/uL (0.0-0.7); EOSINOPHILS % (AUTO) 5.1 %; HCT - HEMATOCRIT 48.3 % (42.0-52.0); LYMPHOCYTES # (AUTO) 2.1 10^3/uL (1.5-3.5); LYMPHOCYTES % (AUTO) 24.1 %; MEAN CORPUSCULAR HEMOGLOBIN 31.3 pg (27.0-31.0); MEAN CORPUSCULAR HGB CONC 33.1 g/dL (32.0-36.0); MEAN CORPUSCULAR VOLUME 94.3 fL (80.0-94.0); MONOCYTES # (AUTO) 0.7 10^3/uL (0.0-1.0); MONOCYTES % (AUTO) 7.8 %; NEUTROPHILS # (AUTO) 5.3 10^3/uL (1.5-6.6); NEUTROPHILS % (AUTO) 61.5 %; PLT - PLATELET COUNT 232 10^3/uL (130-450); RED BLOOD COUNT 5.12 10^6/uL (4.70-6.10); RED CELL DISTRIBUTION WIDTH 14.1 % (12.0-15.0); WHITE BLOOD COUNT 8.7 x10^3/uL (4.8-10.8)
[2022-09-08 15:57] LABS: ALBUMIN 4.5 g/dL (3.2-5.5); ALBUMIN/GLOBULIN RATIO 1.4 (1.0-2.2); BILIRUBIN,TOTAL 1.5 mg/dL (0.2-1.0); CALCIUM 9.8 mg/dL (8.5-10.3); CREATININE 0.8 mg/dL (0.6-1.2); POTASSIUM 4.3 mmol/L (3.5-5.0); TOTAL PROTEIN 7.8 g/dL (6.7-8.2)
--- NOTE | 2022-09-08 15:59 | XRAY Report ---
PROCEDURE: Chest 1 View X-Ray INDICATIONS: Chest pain TECHNIQUE: One view of the chest was acquired. COMPARISON: 05/24/2019 FINDINGS: Surgical changes and devices: There are median sternotomy wires. Aortic valvuloplasty change. Lungs and pleura: Slightly low lung volumes with asymmetric right hemidiaphragm elevation. Chronic c oarsening of the interstitial markings diffusely. No focal consolidations, effusion, or pneumothorax. Mediastinum: Mediastinal contours appear normal. Heart size is normal. Bones and chest wall: No suspicious bony lesions. Overlying soft tissues appear unremarkable. IMPRESSION: 1. Findings suggesting chronic interstitial lung disease without acute process. Reviewed by: Bee Roberto MD on 09/08/2022 3:57 PM PST Approved by: Bee Roberto MD on 09/08/2022 3:57 PM PST Station ID: [id number]
--- NOTE | 2022-09-08 16:33 | ED Physician Documentation ---
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 Couple of months ago he was admitted to [facility] for an episode of dyspnea and chest pressure on exertion. Subsequently had angiography demonstrating some coronary occlusion but good collaterals with no need for intervention. Today he was taking his to the clinic and he was hustling around and walked briskly into the clinic where he developed shortness of breath which lasted for about 45 minutes. Unlike the episode 2 months ago where he was admitted to [facility] there was no chest pressure. He feels back to normal now. Review of Systems Constitutional: denies: Fever, Chills Nose: reports: Reviewed and negative Cardiac: reports: Reviewed and negative Respiratory: reports: Dyspnea PD PAST MEDICAL HISTORY - Past Medical History Cardiovascular: Hypertension, High cholesterol, Valve disorder Respiratory: None, Sleep apnea, CPAP use Endocrine/Autoimmune: None GI: GERD : None HEENT: None Psych: Depression, Anxiety Musculoskeletal: None Derm: None - Past Surgical History Past Surgical History: Yes General: Colonoscopy Ortho: Other Cardiovascular: Valve replacement HEENT: Tonsil/Adenoidectomy Derm: Skin cancer surgery - Present Medications Home Medications: Ambulatory Orders Medication Instructions Recorded Confirmed Ascorbic Acid [Vitamin C] 1,000 mg PO DAILY 07/23/13 08/23/22 Cholecalciferol (Vitamin D3) 1,000 unit PO DAILY 07/23/13 08/23/22 [Vitamin D] Lisinopril [Zestril] 20 mg PO DAILY 07/23/13 08/23/22 Omeprazole [PriLOSEC] 20 mg PO DAILY 07/23/13 08/23/22 Tolterodine [Detrol LA] 4 mg PO DAILY 07/23/13 08/23/22 Warfarin [Coumadin] 5 mg PO DAILY 07/23/13 08/23/22 Sertraline [Zoloft] 1 tab PO DAILY 06/18/17 08/23/22 Atorvastatin [Lipitor] 40 mg PO DAILY 05/24/19 08/23/22 Cetirizine [ZyrTEC] 10 mg PO ONCE 05/24/19 08/23/22 HYDROcod/ACETAM 5/325 [[place] 5/325] 1 - 2 tablet PO Q6H PRN #14 tablet 04/16/21 08/23/22 HYDROcod/ACETAM 5/325 [[place] 5/325] 1 - 2 tablet PO Q6H PRN #14 tablet 04/19/21 08/23/22 HYDROcod/ACETAM 5/325 [[place] 5/325] 1 - 2 tablet PO Q6H PRN #14 tablet 04/21/21 08/23/22 - Allergies Allergies/Adverse Reactions: Allergies Allergy/AdvReac Type Severity Reaction Status Date / Time oxycodone [Oxycodone] Allergy Severe Itching Verified 08/23/22 13:33 famotidine [From Pepcid] AdvReac Intermediate unknown Verified 08/23/22 13:33 - Social History Does the pt smoke?: No Smoking Status: Former smoker Does the pt drink ETOH?: No Does the pt have substance abuse?: No - Immunizations Immunizations are current?: Yes - POLST Patient has POLST: No PD ED PE NORMAL - Vitals Vital signs reviewed: Yes - General General: Alert and oriented X 3, No acute distress - HEENT HEENT: PERRL, EOMI - Neck Neck: Supple, no meningeal sign, No bony TTP - Cardiac Cardiac: RRR, Other (3/6 chantel, with s2 click) - Respiratory Respiratory: No respiratory distress, Clear bilaterally - Abdomen Abdomen: Non tender - Back Back: No CVA TTP, No spinal TTP - Derm Derm: Normal color, Warm and dry - Extremities Extremities: No edema, No calf tenderness / cord - Neuro Neuro: Alert and oriented X 3, Normal speech Results - Vitals Vitals: Vital Signs - 24 hr 09/08/22 09/08/22 15:07 16:03 Temperature 37 C Heart Rate 70 74 Respiratory 16 17 Rate Blood Pressure 118/69 127/65 O2 Saturation 96 98 Oxygen O2 Source Room air - EKG (time done) 1518 Rate: Rate (enter#) (71) Rhythm: NSR [place]: Normal Intervals: Normal MD QRS: LVH Ischemia: Normal ST segments - Labs Labs: Laboratory Tests 09/08/22 09/08/22 09/08/22 15:36 15:36 15:36 WBC 8.7 RBC 5.12 Hgb 16.0 Hct 48.3 MCV 94.3 H MCH 31.3 H MCHC 33.1 RDW 14.1 Plt Count 232 MPV 10.0 Neut # (Auto) 5.3 Lymph # (Auto) 2.1 [place] # (Auto) 0.7 Eos # (Auto) 0.4 Baso # (Auto) 0.1 Absolute Nucleated RBC 0.00 Nucleated RBC % 0.0 Sodium 139 Potassium 4.3 Chloride 101 Carbon Dioxide 28 Anion Gap 10.0 BUN 20 Creatinine 0.8 Estimated GFR (MDRD) 93 Glucose 100 Calcium 9.8 Total Bilirubin 1.5 H AST 36 ALT 23 Alkaline Phosphatase 92 Troponin I High Sens 12.0 Total Protein 7.8 Albumin 4.5 Globulin 3.3 Albumin/Globulin Ratio 1.4 Lipase 26 - Rads (name of study) 1v chest Radiology: EMP read contemporaneously (chronic dz, nad) PD MEDICAL DECISION MAKING - ED course ED course: 81-year-old gentleman presents with an episode of dyspnea in the setting of chronic lung disease and known coronary disease. There was no chest pain or pressure with it. His lungs are clear and his chest x-ray shows only chronic findings. No evidence of CHF. His EKG is nonischemic. And he had an angiogram within the last couple of months showing no occlusive coronary disease amenable to intervention. He had no chest pressure today and has biomarkers are negative. Departure - Departure Disposition: 01 Home, Self Care Clinical Impression: Exertional dyspnea Condition: Good Record reviewed to determine appropriate education?: Yes Instructions: ED Dyspnea Shortness of Breath Comments: You are seen today for an episode of shortness of breath with exertion. There is no evidence of active heart disease but I do want you to follow-up with your heel gummer this coming week for recheck. Return for new or worsening symptoms.
[2022-09-08 16:38] VITALS: BP 123/77
== END 2022-09-08 16:50 | disposition home or self-care (01) ==
LOC: ED 14:57
DX: R06.09 Other forms of dyspnea (principal); J84.9 Interstitial pulmonary disease, unspecified; J61 Pneumoconiosis due to asbestos and other mineral fibers; Z87.891 Personal history of nicotine dependence; I10 Essential (primary) hypertension; I25.10 Atherosclerotic heart disease of native coronary artery without angina pectoris; Z79.01 Long term (current) use of anticoagulants; Z95.2 Presence of prosthetic heart valve
CPT/HCPCS: 36415; 80053; 83690; 84484; 85025; 93005; 99283; 99284

== ENCOUNTER 2023-01-10 13:15 | Outpatient (CLI) | payer MEDICARE, OTHER | END 2023-01-10 13:30 | disposition home or self-care (01) | LOC: LAB.N 13:15 | PROVIDERS: ATTEND Family Medicine | DX: Z79.01 Long term (current) use of anticoagulants (principal); L03.116 Cellulitis of left lower limb | CPT/HCPCS: 36415; 85610; 87070; 87205 ==

== ENCOUNTER 2023-01-12 13:11 | Outpatient (CLI) | payer MEDICARE, OTHER | END 2023-01-12 13:12 | disposition home or self-care (01) | LOC: LAB.N 13:11 | PROVIDERS: ATTEND Family Medicine | DX: R79.1 Abnormal coagulation profile (principal) | CPT/HCPCS: 36416; 85610 ==

== ENCOUNTER 2023-02-06 06:14 | Outpatient (CLI) | payer MEDICARE, OTHER | END 2023-02-06 23:59 | disposition critical access hospital (66) | LOC: EMS 06:14 | DX: M79.605 Pain in left leg (principal); M79.18 Myalgia, other site | CPT/HCPCS: A0425; A0429 ==

== ENCOUNTER 2023-02-06 06:35 | Emergency (ER) | payer MEDICARE, OTHER ==
[2023-02-06] MEDS ORDERED: CYCLOBENZAPRINE 10 MG TABLET PO STA (06:43)
--- NOTE | 2023-02-06 06:57 | ED Physician Documentation ---
PD HPI LOWER EXT INJURY - Stated complaint Stated Complaint: L LEG PX - Chief complaint Chief Complaint: Ext Problem - History obtained from History obtained from: Patient - History of Present Illness PD HPI LOW EXT INJURY LOCATION: Left, Thigh Type of injury: Twist (he is moving to [place] end of this week and has been packing and carrying boxes/etc. Noted onset of pain left posterior thigh and then next day some firm swelling that is tender. Pain with walking and squatting.). No: Fall, Blunt / blow Where injury occurred: Home Timing - onset: How many days ago (several) Timing - duration: Days (several) Timing - details: Gradual onset, Still present (worsening pain each day, during activities) Improved by: Rest Worsened by: Moving, Palpating Associated symptoms: Swelling. No: Weakness, Numbness Similar symptoms before: Has not had sx before Recently seen: Not recently seen Review of Systems Constitutional: denies: Fever, Chills Skin: denies: Abrasion (s), Laceration (s) Neurologic: denies: Focal weakness, Numbness Endocrine: reports: Easy bruising / bleeding (is on COumadin for heart valve replacement.) PD PAST MEDICAL HISTORY - Past Medical History Cardiovascular: Hypertension, High cholesterol, Valve disorder Respiratory: None, Sleep apnea, CPAP use Endocrine/Autoimmune: None GI: GERD : None HEENT: None Psych: Depression, Anxiety Musculoskeletal: None Derm: None - Past Surgical History Past Surgical History: Yes General: Colonoscopy Ortho: Other Cardiovascular: Valve replacement HEENT: Tonsil/Adenoidectomy Derm: Skin cancer surgery - Present Medications Home Medications: Ambulatory Orders Medication Instructions Recorded Confirmed Ascorbic Acid [Vitamin C] 1,000 mg PO DAILY 07/23/13 08/23/22 Cholecalciferol (Vitamin D3) 1,000 unit PO DAILY 07/23/13 08/23/22 [Vitamin D] Lisinopril [Zestril] 20 mg PO DAILY 07/23/13 08/23/22 Omeprazole [PriLOSEC] 20 mg PO DAILY 07/23/13 08/23/22 Tolterodine [Detrol LA] 4 mg PO DAILY 07/23/13 08/23/22 Warfarin [Coumadin] 5 mg PO DAILY 07/23/13 08/23/22 Sertraline [Zoloft] 1 tab PO DAILY 06/18/17 08/23/22 Atorvastatin [Lipitor] 40 mg PO DAILY 05/24/19 08/23/22 Cetirizine [ZyrTEC] 10 mg PO ONCE 05/24/19 08/23/22 HYDROcod/ACETAM 5/325 [[place] 5/325] 1 - 2 tablet PO Q6H PRN #14 tablet 04/16/21 08/23/22 HYDROcod/ACETAM 5/325 [[place] 5/325] 1 - 2 tablet PO Q6H PRN #14 tablet 04/19/21 08/23/22 HYDROcod/ACETAM 5/325 [[place] 5/325] 1 - 2 tablet PO Q6H PRN #14 tablet 04/21/21 08/23/22 HYDROcod/ACETAM 5/325 [[place] 5/325] 1 ea PO Q6H PRN #12 tablet 02/06/23 methocarbamoL [Robaxin] 500 mg PO Q6H PRN #25 tablet 02/06/23 - Allergies Allergies/Adverse Reactions: Allergies Allergy/AdvReac Type Severity Reaction Status Date / Time oxycodone [Oxycodone] Allergy Severe Itching Verified 02/06/23 06:48 famotidine [From Pepcid] AdvReac Intermediate unknown Verified 02/06/23 06:48 - Social History Does the pt smoke?: No Smoking Status: Never smoker Does the pt drink ETOH?: No Does the pt have substance abuse?: No - Immunizations Immunizations are current?: Yes - POLST Patient has POLST: No PD ED PE NORMAL - Vitals Vital signs reviewed: Yes - General General: Alert and oriented X 3, No acute distress, Well developed/nourished - Cardiac Cardiac: RRR, Other (mechanical valve sound left chest.) - Respiratory Respiratory: Clear bilaterally, Other (purple bruising noted left chestwall and patient states he is not aware of injury to that area, not tender, and he bruises easily.) - Derm Derm: Normal color, Warm and dry - Extremities Extremities: No edema, No calf tenderness / cord, Other (posterior thigh left with tenderness in muscle and area of firm swelling underlying skin about 5-6 cm size. He has pain with knee flexion against resistance and with streatch extension of left hip. Other motions okay. ) Results - Vitals Vitals: Vital Signs - 24 hr 02/06/23 02/06/23 06:43 10:09 Temperature 36.7 C Heart Rate 87 78 Respiratory 17 14 Rate Blood Pressure 124/83 H 107/93 H O2 Saturation 99 99 Oxygen O2 Source Room air - Labs Labs: Laboratory Tests 02/06/23 02/06/23 02/06/23 07:28 07:28 07:28 WBC 9.0 RBC 3.91 L Hgb 12.6 L Hct 37.3 L MCV 95.4 H MCH 32.2 H MCHC 33.8 RDW 14.6 Plt Count 224 MPV 10.2 Neut # (Auto) 6.0 Lymph # (Auto) 1.9 [place] # (Auto) 0.9 Eos # (Auto) 0.1 Baso # (Auto) 0.0 Absolute Nucleated RBC 0.00 Nucleated RBC % 0.0 PT 54.8 H INR 5.4 H* Sodium 139 Potassium 4.3 Chloride 104 Carbon Dioxide 25 Anion Gap 10.0 BUN 27 H Creatinine 0.9 Estimated GFR (MDRD) 81 L Glucose 117 H Calcium 8.8 - Rads (name of study) duplex left leg Relevant Findings:: Prelim report reviewed, Other (U/S tech said there was no DVT. There was fluid collection in area of swelling c/w hematoma. ) PD Medical Decision Making - ED course Complexity details: reviewed results (Last INR was about 3 weeks ago per pt. Was in range at that time. Obtained INR today and is 5.4. Referenced UpToDate guidline table and it references holding coumadin and no vit K for INR 4-10 with mild/low risk bleeding.), considered differential (Muscle strain seems most likely with presumed hematoma. Want to ensure no DVT though and will get U/S. Unlikely bony process but he has been active. Xray done and no bony lesions. ), d/w patient Departure - Departure Disposition: 01 Home, Self Care Clinical Impression: Pain in left thigh, Left hamstring muscle strain, Hematoma, Anticoagulant long- term use, Supratherapeutic INR Condition: Stable Record reviewed to determine appropriate education?: Yes Instructions: ED Hematoma Follow-Up: Paxton Cristobal DO [Primary Care Provider] - Prescriptions: HYDROcod/ACETAM 5/325 [[place] 5/325] 1 ea PO Q6H PRN #12 tablet PRN Reason: Pain methocarbamoL [Robaxin] 500 mg PO Q6H PRN #25 tablet PRN Reason: Spasms Comments: Your x-ray is normal without any obvious bony abnormalities. Your ultrasound does not show any signs of blood clots. It did show a collection of fluid in the area that is hurting consistent with a hematoma. I presume you had a muscle strain with some bleeding that collected in the area. Activity as tolerated based on discomfort. Tylenol 650 mg 4 times daily regularly for pain. Add hydrocodone every 6 hours if needed for worse pain. You may have some muscle cramping/spasms and you could use Robaxin muscle sore relaxant as needed for spasms. Your INR was elevated at 5.4. I would hold your doses tonight and tomorrow night and recheck your INR morning before leaving [facility]. If it is back to the normal range at that point, then resume your normal dosing. Stay well- hydrated. Heat warm towels to the back of the thigh may help with spasms at times as well. I sent your prescriptions to [facility]. My narcotic instructions I am prescribing a short course of narcotic pain medication for you. These are potentially dangerous and addictive medications that should be used carefully. These medications may constipate you. Take an nupx-oab-jccnyps stool softener such as docusate twice daily with plenty of water while taking these medications. If you go 24 hours without a bowel movement, take [id number] MiraLAX, per package instructions. Do not drink or drive while taking these medications. If you received narcotic or sedating medications while in the emergency department do not drive for 24 hours. Store this medication in a safe, secure place and out of reach of children. It is a violation of federal law to give or sell this medication to another person or to use in a manner other than prescribed. The ED will not refill narcotic prescriptions, including prescriptions lost or stolen. You can dispose of unwanted medications at the [facility]'s office or at several pharmacies such as [facility]. Discharge Date/Time: 02/06/23 10:09
[2023-02-06] MEDS ORDERED: HYDROcod/ACETAM 5/325 MG TABLET PO STA (07:18)
[2023-02-06 07:41] LABS: BASOPHILS % (AUTO) 0.3 %; EOSINOPHILS # (AUTO) 0.1 10^3/uL (0.0-0.7); EOSINOPHILS % (AUTO) 1.6 %; HCT - HEMATOCRIT 37.3 % (42.0-52.0); HGB - HEMOGLOBIN 12.6 g/dL (14.0-18.0); LYMPHOCYTES # (AUTO) 1.9 10^3/uL (1.5-3.5); LYMPHOCYTES % (AUTO) 20.9 %; MEAN CORPUSCULAR HEMOGLOBIN 32.2 pg (27.0-31.0); MEAN CORPUSCULAR HGB CONC 33.8 g/dL (32.0-36.0); MEAN CORPUSCULAR VOLUME 95.4 fL (80.0-94.0); MEAN PLATELET VOLUME 10.2 fL (7.4-11.4); MONOCYTES # (AUTO) 0.9 10^3/uL (0.0-1.0); MONOCYTES % (AUTO) 9.8 %; PLT - PLATELET COUNT 224 10^3/uL (130-450); RED BLOOD COUNT 3.91 10^6/uL (4.70-6.10); RED CELL DISTRIBUTION WIDTH 14.6 % (12.0-15.0)
[2023-02-06 07:43] LABS: CALCIUM 8.8 mg/dL (8.5-10.3); CREATININE 0.9 mg/dL (0.6-1.2); POTASSIUM 4.3 mmol/L (3.5-5.0)
[2023-02-06 07:48] LABS: PT - PROTHROMBIN TIME 54.8 secs (9.9-12.6)
[2023-02-06 07:49] LABS: INR 5.4 (0.8-1.2)
--- NOTE | 2023-02-06 09:10 | Ultrasound Report ---
PROCEDURE: Duplex Ext Veins Left INDICATIONS: left posterior thigh pain TECHNIQUE: Real-time imaging, as well as color and pulse Doppler interrogation, were performed of the lower extr emity deep veins from the inguinal ligament to the popliteal fossa. COMPARISON: None. FINDINGS: The deep veins are normally compressible, and free of intraluminal thrombus. Color and pu lse Doppler demonstrate normal phasic intraluminal flow. There is normal augmentation response to di stal compression maneuver. In the area of pain in the left mid posterior thigh, there is an ill-defined, somewhat heterogeneous area measuring 14.2 x 6.4 x 5.2 cm with through transmission, probably heterogeneous fluid. Muscular architecture is not well seen. IMPRESSION: 1. No DVT in left lower extremity. 2. Possible complex fluid collection in the mid thigh area of pain and injury. This may be a hematoma given history of trauma and exact location is uncertain. If clinically indicated, MRI evaluation of this region could be performed for more detail. 3. Preliminary results given by the software release engineer to the ordering provider immediately following the st udy. Reviewed by: Bee Roberto MD on 02/06/2023 9:09 AM PDT Approved by: Bee Roberto MD on 02/06/2023 9:09 AM PDT Station ID: [id number]
--- NOTE | 2023-02-06 10:04 | XRAY Report ---
PROCEDURE: Femur 2V LT INDICATIONS: thigh pain TECHNIQUE: 2 views of the femur were acquired. COMPARISON: None. FINDINGS: Bones: No fractures or dislocations. No suspicious bony lesions. Hip and knee degenerative change . Soft tissues: No suspicious soft tissue calcifications or masses. Extensive arterial calcification s. IMPRESSION: No acute bony abnormality. Hip and knee degenerative change. Peripheral vascular disease. Reviewed by: Surinder Draper MD on 02/06/2023 10:03 AM PDT Approved by: Surinder Draper MD on 02/06/2023 10:03 AM PDT Station ID: [id number]
[2023-02-06 10:10] VITALS: BP 107/93
== END 2023-02-06 10:09 | disposition home or self-care (01) ==
LOC: EDUNIT# → ED 06:35
DX: S76.912A Strain of unspecified muscles, fascia and tendons at thigh level, left thigh, initial encounter (principal); X58.XXXA Exposure to other specified factors, initial encounter; I10 Essential (primary) hypertension; Z79.01 Long term (current) use of anticoagulants; I48.91 Unspecified atrial fibrillation
CPT/HCPCS: 36415; 73552; 80048; 85025; 85610; 93971; 99284; A9270

== ENCOUNTER 2023-02-09 08:40 | Outpatient (CLI) | payer MEDICARE, OTHER | END 2023-02-09 23:59 | disposition critical access hospital (66) | LOC: EMS 08:40 | DX: M79.81 Nontraumatic hematoma of soft tissue (principal); M79.605 Pain in left leg; R20.8 Other disturbances of skin sensation; Z79.01 Long term (current) use of anticoagulants | CPT/HCPCS: A0425; A0429 ==

== ENCOUNTER 2023-02-09 09:06 | Emergency (ER) | payer MEDICARE, OTHER ==
--- NOTE | 2023-02-09 09:11 | ED Physician Documentation ---
History of Present Illness - Stated complaint Stated Complaint: L LEG HEMATOMA - Additonal information Additional information: Patient is 82-year-old male brought in by ambulance for left leg bruising and hematoma. Patient chronically anticoagulated on Coumadin secondary to aortic valve replacement performed in 2003. Also endorses for past medical significant for prostate enlargement. Denies known history of coronary artery disease, hypertension, dyslipidemia, chronic renal insufficiency. Reports symptoms began Sunday, 4 days ago. Was experiencing a "charley horse" on the outer aspect of his left thigh. This is in the setting of packing and lifting heavy boxes as [place] is [place] of [place]. Area developed bleeding and he was seen here Sunday, 2 days ago. At that time was noted to have an elevated INRWith INR value 5.4. Ultrasonography on medication was negative for DVT but did demonstrate fluid collection which per radiology report likely represented hematoma. Discontinued his Coumadin at that time. Bruising has progressed and today began to feel some numbness on the anterior aspect of his tibia which is what prompted him to call squad. Denies any known trauma to the leg. Otherwise denies for fever, chills, chest pain, shortness of breath, abdominal pain, nausea, vomiting, diarrhea, constipation. Review of Systems Constitutional: denies: Fever Eyes: denies: Loss of vision Ears: denies: Loss of hearing Nose: denies: Rhinorrhea / runny nose Throat: denies: Dental pain / toothache Cardiac: denies: Chest pain / pressure Respiratory: denies: Dyspnea GI: denies: Abdominal Pain : denies: Dysuria Skin: reports: Other (Ecchymosis) Musculoskeletal: denies: Neck pain Neurologic: reports: Numbness. denies: Generalized weakness PD PAST MEDICAL HISTORY - Past Medical History Cardiovascular: Hypertension, High cholesterol, Valve disorder Respiratory: None, Sleep apnea, CPAP use Endocrine/Autoimmune: None GI: GERD : None HEENT: None Psych: Depression, Anxiety Musculoskeletal: None Derm: None - Past Surgical History Past Surgical History: Yes General: Colonoscopy Ortho: Other Cardiovascular: Valve replacement HEENT: Tonsil/Adenoidectomy Derm: Skin cancer surgery - Present Medications Home Medications: Ambulatory Orders Medication Instructions Recorded Confirmed Ascorbic Acid [Vitamin C] 1,000 mg PO DAILY 07/23/13 02/09/23 Cholecalciferol (Vitamin D3) 1,000 unit PO DAILY 07/23/13 02/09/23 [Vitamin D] Lisinopril [Zestril] 20 mg PO DAILY 07/23/13 02/09/23 Omeprazole [PriLOSEC] 20 mg PO DAILY 07/23/13 02/09/23 Tolterodine [Detrol LA] 4 mg PO DAILY 07/23/13 02/09/23 Warfarin [Coumadin] 5 mg PO QDWARFARIN 07/23/13 02/09/23 Sertraline [Zoloft] 1 tab PO DAILY 06/18/17 02/09/23 Atorvastatin [Lipitor] 40 mg PO DAILY 05/24/19 02/09/23 Cetirizine [ZyrTEC] 10 mg PO DAILY PM PRN 05/24/19 02/09/23 HYDROcod/ACETAM 5/325 [[place] 5/325] 1 ea PO Q6H PRN #12 tablet 02/06/23 02/09/23 methocarbamoL [Robaxin] 500 mg PO Q6H PRN #25 tablet 02/06/23 02/09/23 Amlodipine Besylate [Norvasc] 2.5 mg PO DAILY 02/09/23 02/09/23 Aspirin [Aspirin EC] 81 mg PO DAILY 02/09/23 02/09/23 Docusate Sodium 100Mg Capsule 100 mg PO DAILY 02/09/23 02/09/23 [Colace 100Mg Capsule] Metoprolol Succinate [Toprol Xl] 25 mg PO DAILY 02/09/23 02/09/23 Tamsulosin [Flomax] 0.4 mg PO DAILY 02/09/23 02/09/23 - Allergies Allergies/Adverse Reactions: Allergies Allergy/AdvReac Type Severity Reaction Status Date / Time oxycodone [Oxycodone] Allergy Severe Itching Verified 02/09/23 09:26 famotidine [From Pepcid] AdvReac Intermediate unknown Verified 02/09/23 09:26 - Social History Does the pt smoke?: No Smoking Status: Never smoker Does the pt drink ETOH?: No Does the pt have substance abuse?: No - Immunizations Immunizations are current?: Yes - POLST Patient has POLST: No PD ED PE NORMAL - General General: Alert and oriented X 3 - HEENT HEENT: Atraumatic, PERRL - Neck Neck: Supple, no meningeal sign - Cardiac Cardiac: RRR - Respiratory Respiratory: No respiratory distress - Abdomen Abdomen: Normal bowel sounds, Non tender - Extremities Extremities: Other (Ecchymosis involving posterior and medial thigh extending to mid calf. Normal distal pulses. Thigh and calf easily easily compressible. Normal strength flexion, extension at left ankle.) Results - Vitals Vitals: Vital Signs - 24 hr 02/09/23 02/09/23 02/09/23 09:14 12:26 12:49 Temperature 37.2 C Heart Rate 87 68 70 Respiratory 15 18 16 Rate Blood Pressure 100/60 105/65 92/61 O2 Saturation 973 H 98 99 02/09/23 02/09/23 13:58 16:45 Temperature Heart Rate 72 72 Respiratory 16 12 Rate Blood Pressure 102/56 L 131/65 H O2 Saturation 99 100 Oxygen O2 Source Room air - EKG (time done) 0927 EKG releavant findings:: EKG personally interpreted by author of this note. Relevant findings are: Sinus rhythm with rate 83 bpm. Normal axis. Normal IA, QRS, QTc intervals. No ST segment elevations or T wave inversions. Moderate motion artifact throughout. IA interval has shortened in comparison to previous 09/08/2022. - Labs Labs: Laboratory Tests 02/06/23 02/09/23 02/09/23 07:28 09:22 09:22 WBC 10.7 RBC 3.17 L Hgb 10.2 L Hct 30.4 L MCV 95.9 H MCH 32.2 H MCHC 33.6 RDW 14.5 Plt Count 260 MPV 10.2 Neut # (Auto) 7.8 H Lymph # (Auto) 1.7 Sibley # (Auto) 1.0 Eos # (Auto) 0.2 Baso # (Auto) 0.1 Absolute Nucleated RBC 0.00 Nucleated RBC % 0.0 PT 24.1 H INR 2.2 H Sodium Potassium Chloride Carbon Dioxide Anion Gap BUN Creatinine Estimated GFR (MDRD) Glucose Calcium SARS-CoV-2 (PCR) Blood Type Blood Type Recheck O POSITIVE Antibody Screen 02/09/23 02/09/23 02/09/23 09:22 09:26 12:35 WBC RBC Hgb Hct MCV MCH MCHC RDW Plt Count MPV Neut # (Auto) Lymph # (Auto) Sibley # (Auto) Eos # (Auto) Baso # (Auto) Absolute Nucleated RBC Nucleated RBC % PT INR Sodium 139 Potassium 4.5 Chloride 106 Carbon Dioxide 25 Anion Gap 8.0 BUN 26 H Creatinine 0.9 Estimated GFR (MDRD) 81 L Glucose 112 H Calcium 8.5 SARS-CoV-2 (PCR) NOT DETECTED Blood Type O POSITIVE Blood Type Recheck Antibody Screen NEGATIVE 02/09/23 02/09/23 16:39 16:39 WBC RBC Hgb 9.7 L Hct 30.0 L MCV MCH MCHC RDW Plt Count MPV Neut # (Auto) Lymph # (Auto) Sibley # (Auto) Eos # (Auto) Baso # (Auto) Absolute Nucleated RBC Nucleated RBC % PT 13.5 H INR 1.2 Sodium Potassium Chloride Carbon Dioxide Anion Gap BUN Creatinine Estimated GFR (MDRD) Glucose Calcium SARS-CoV-2 (PCR) Blood Type Blood Type Recheck Antibody Screen PD Medical Decision Making - ED course Complexity details: reviewed old records, reviewed results, re-evaluated patient, d/w patient, d/w wardrobe image consultant ED course: Patient 82-year-old male presenting to the emergency department with increased swelling, bruising to left lower extremity. Past medical significant for chronic anticoagulation secondary to prosthetic aortic valve placed in 2003. Initially developed symptoms Jn, 4 days ago. Reported some increased physical activity as he is actively moving and preparing to leave [facility]. Initially had an area that he described as a "charley horse" to the lateral a spect of his left thigh. This subsequently developed ecchymosis and swelling. He was seen here 2 days ago and found of a supratherapeutic INR at 5.4. Ultrasonography at that time showed hematoma without active indications of bleeding. He returned today via EMS for worsening swelling and bruising in his left lower extremity as well as numbness to the anterior tibia. He was subsequently identified to have a drop in hemoglobin at 10.2, down from 12.62 days ago. His INR today was 2.2. CT angiography of the lower extremity demonstrated expanding hematoma with extra extravasation from the femoral profundus artery. Kcentra and vitamin K were ordered. Care was initially discussed with Dr. Paxton Cisneros, vascular surgery at [facility]. Upon review of the imaging Paxton Cisneros did not believe that there was active extravasation but did recommend a minimum 24. Observation with serial H&H's. Unfortunately the [facility] was unable to provide a hospital bed at this time. I did discuss his care with our in-house hospitalist who declined the patient stating that since we do not have a surgical service in house it would be dangerous for the patient to stay here. Care was subsequently discussed with the ER attending Dr. Marie, at [facility] who graciously agrees to accept the patient. Recheck of the patient's labs demonstrated a very minimal downtrend of hemoglobin at 9.7 as well as an INR now 1.2. Patient was transferred from our facility to [facility] for further evaluation and treatment. Departure - Departure Disposition: 02 Transfer Acute Care Hosp Clinical Impression: Chronic anticoagulation, Spontaneous hematoma of thigh
[2023-02-09 09:33] LABS: BASOPHILS # (AUTO) 0.1 10^3/uL (0.0-0.1); BASOPHILS % (AUTO) 0.5 %; EOSINOPHILS # (AUTO) 0.2 10^3/uL (0.0-0.7); EOSINOPHILS % (AUTO) 1.4 %; HCT - HEMATOCRIT 30.4 % (42.0-52.0); HGB - HEMOGLOBIN 10.2 g/dL (14.0-18.0); LYMPHOCYTES # (AUTO) 1.7 10^3/uL (1.5-3.5); LYMPHOCYTES % (AUTO) 15.6 %; MEAN CORPUSCULAR HEMOGLOBIN 32.2 pg (27.0-31.0); MEAN CORPUSCULAR HGB CONC 33.6 g/dL (32.0-36.0); MEAN CORPUSCULAR VOLUME 95.9 fL (80.0-94.0); MEAN PLATELET VOLUME 10.2 fL (7.4-11.4); NEUTROPHILS # (AUTO) 7.8 10^3/uL (1.5-6.6); NEUTROPHILS % (AUTO) 73.2 %; PLT - PLATELET COUNT 260 10^3/uL (130-450); RED BLOOD COUNT 3.17 10^6/uL (4.70-6.10); RED CELL DISTRIBUTION WIDTH 14.5 % (12.0-15.0); WHITE BLOOD COUNT 10.7 x10^3/uL (4.8-10.8)
[2023-02-09 09:43] LABS: CALCIUM 8.5 mg/dL (8.5-10.3); CREATININE 0.9 mg/dL (0.6-1.2); POTASSIUM 4.5 mmol/L (3.5-5.0)
[2023-02-09] MEDS ORDERED: iohexoL-300 100 ML VIAL ONE ×2 (09:57→10:22)
[2023-02-09 09:59] LABS: INR 2.2 (0.8-1.2); PT - PROTHROMBIN TIME 24.1 secs (9.9-12.6)
--- NOTE | 2023-02-09 11:09 | CT Report ---
PROCEDURE: ANGIO LOWER EXT W/WO - LT INDICATIONS: Concern vasc injury, expanding hematoma on coumadi CONTRAST: See chart TECHNIQUE: After the administration of intravenous contrast, 2 mm thick sections acquired during the arterial ph ase from the distal abdominal aorta to the left foot with a small [id number] centered on the left lower extremity. 3-dimensional maximum-intensity projection (MIP) and/or volume rendering reformats w ere then acquired. For radiation dose reduction, the following was used: automated exposure control , adjustment of mA and/or kV according to patient size. COMPARISON: None FINDINGS: Image quality: Excellent. The distal aorta is of normal caliber. The iliac, common femoral, and SFA are normal in caliber. Ther e is mild diffuse SFA disease. The popliteal is mildly diseased. The anterior tibial occludes in the calf. There is posterior tibial and peroneal disease. The posterior tibial is the dominant arterial s upply to the foot. There is a posterior medial thigh hematoma which measures approximately 23.5 x 7.6 x 7.3 cm. There is active extravasation at the medial aspect of the hematoma consistent with active hemorrhage from a b ranch off of the profunda. IMPRESSION: Large posterior medial thigh hematoma with active extravasation involving a branch of the profunda fe mally artery. Comment: Consider transfer for possible endovascular arterial embolization versus reversal of anticoa gulants. Reviewed by: Surinder Draper MD on 02/09/2023 11:08 AM PDT Approved by: Surinder Draper MD on 02/09/2023 11:08 AM PDT Station ID: [id number]
[2023-02-09] MEDS ORDERED: PHYTONADIONE INJ (ADULT) 10 MG in SODIUM CHLORIDE 0.9% 50 ML IV ONE (11:46)
[2023-02-09] MEDS ORDERED: PROTHROMBIN COMPLEX CONC 500 UNIT VIAL IVP STA (11:47)
[2023-02-09 16:44] LABS: HGB - HEMOGLOBIN 9.7 g/dL (14.0-18.0)
[2023-02-09 16:51] LABS: INR 1.2 (0.8-1.2); PT - PROTHROMBIN TIME 13.5 secs (9.9-12.6)
[2023-02-09] MEDS ORDERED: iohexoL-300 100 ML VIAL IVP ONE (18:05)
[2023-02-09 18:07] VITALS: BP 104/60
== END 2023-02-09 19:08 | disposition short-term general hospital (02) ==
LOC: ED 09:06
DX: X58.XXXA Exposure to other specified factors, initial encounter (principal); S80.12XA Contusion of left lower leg, initial encounter; Y93.E6 Activity, residential relocation; I10 Essential (primary) hypertension; E78.00 Pure hypercholesterolemia, unspecified; Z79.01 Long term (current) use of anticoagulants; Z95.2 Presence of prosthetic heart valve; Z79.899 Other long term (current) drug therapy; Z20.822 Contact with and (suspected) exposure to COVID-19
CPT/HCPCS: 36415; 73706; 80048; 85014; 85018; 85025; 85610; 86850; 86900; 86901; 87635; 93005; 96365; 96375; 99285; J7040; J7168; Q9967